=== PATIENT | female | born 1990 | race Caucasian/White ===

== ENCOUNTER → 2017-11-12 14:00 | Outpatient (CLI) | payer OTHER, SELFPAY | PROVIDERS: Family Provider Family Medicine; PCP Family Medicine | DX: Z23 Encounter for immunization (principal) | CPT/HCPCS: 90471; 90686 ==

== ENCOUNTER → 2018-05-29 10:06 | Outpatient (REF) | payer OTHER, SELFPAY | LOC: LAB 10:06 | PROVIDERS: Visit Provider Family Medicine | DX: R50.9 Fever, unspecified (principal) | CPT/HCPCS: 87400 ==

== ENCOUNTER 2018-09-11 09:00 | Outpatient (RCR) | payer OTHER, SELFPAY ==
--- NOTE | 2018-07-03 16:17 | PT.OIE ---
Current Diagnoses Uterovaginal prolapse, unspecified (07/03/18) Past Surgical History (This Medical Record has been edited. Action required.) History of third molar tooth extraction Status post tonsillectomy and adenoidectomy Provider Visit Care Team Role Provider Type Milagros Franklin MD Attending Provider Physician Primary Care Provider Specialty: Family Practice Address: [address] [place] [address], [id number] Email: Physical Therapy Initial Evaluation PT-OP-A Visit Information Start: 07/03/18 11:40 Freq: Status: Active Protocol: Document 07/03/18 09:45 BS (Rec: 07/03/18 13:47 BS [email or web address]) Out-Patient Physical Therapy Visit Information Visit Information Visit Type Initial Evaluation Visit Start Time 09:45 Visit Stop Time 10:30 Total Visit Minutes 45 Visit Number 1 Number of [employer] Visits 0 Evaluation Information Evaluation Date 07/03/18 PT-OP-B Current Condition Start: 07/03/18 11:40 Freq: Status: Active Protocol: Document 07/03/18 09:45 BS (Rec: 07/03/18 13:47 BS [email or web address]) Current Condition History of Current Condition Onset Date 2014 Current Complaints prolapse History of Current Condition Pt complains of constant mild pelvic pressure and heaviness that increases during menstruation and when standing . Pt first noticed symptoms of prolapse following the of her first child in 2014 and notes that it became worse after her second child in 2016. She has not been able to use tampons since her most recent child due to discomfort and it not staying in place. Both of her children were delivered vaginally, small perineal tears with both births. Pt denies birthing complications, use of forceps, urinary incontinence, or pain with intercourse and urination. She denies constipation or chronic cough. Prior Functional Status Baseline Function- ADL's Independent Baseline Function- Gait Independent, no AD Baseline Function- Work/School Independent Baseline Function- Recreation/Hobbies Independent Current Functional Impairments (Reported) Functional Limitations- ADL's Pt reports pelvic discomfort and heaviness with all activities of daily living, especially in standing. Functional Limitations- Mobility/Gait Pelvic heaviness with ambulation and functional mobility. Functional Limitations- Other Pt has had to switch to using pads due to pelvic discomfort with tampons. PT-OP-C Subjective Start: 07/03/18 11:40 Freq: Status: Active Protocol: Document 07/03/18 09:45 BS (Rec: 07/03/18 13:47 BS [email or web address]) Patient Questionnaires Pelvic Pain and Urgency/Frequency Patient Symptom Scale Pelvic Pain Score 16 OP-PT Pain Assessment Pain Assessment Grid Paper Pain Assessment Grid Completed Yes Location Wrist Pain Location Details Bilateral wrists Intensity 9 Perineal Pain Location Details Pelvic heaviness and discomfort Intensity 6 Scale Used Numeric (1 - 10) Pain Aggravating Factors Standing Other Pain Aggravating Factors menstruation PT-OP-I Pelvic Floor Start: 07/03/18 11:40 Freq: Status: Active Protocol: Document 07/03/18 09:45 AMB (Rec: 07/03/18 11:58 AMB [email or web address]) Pelvic Floor Assessment Urine Pelvic Floor Surgery No Urinary Symptoms Falling Out Feeling/Heavy Other Urinary Symptoms denies leaks, but not exercising a lot Voiding Frequency every 2 hours Nocturia 1 Bowel Bowel Surgery No Pelvic Clock Pelvic Clock Other Tenderness bilaterally at obterator, no tenderness at perineum, good healing of scar from tear. Prolapse Uterine Prolapse Grade 2 Perineal Descent Resting Absent Bearing Present SEMG (uV) Baseline 10 Quick Contraction 20 Recruitment Pattern Fair Relaxation Fair Holding Poor/Slow Stability of Hold Fair SEMG Stability of Rest Fair Contraction Ability Voluntary Contraction Weak Voluntary Relaxation Weak Manual Muscle Testing Left 3 Manual Muscle Testing Right 3 Manual Muscle Testing Anterior 3 Manual Muscle Testing Posterior 2 Muscle Endurance (Seconds) 5 Number of Quick Contractions In 10 4 Seconds Comments Pelvic Floor Comments Alexus had a high level of baseline muscular activity on sEMG, but was not especially tight at the introitus, did feel pressure with palpation throughout vaginal canal. PT-OP-Q Treatments Start: 07/03/18 11:40 Freq: Status: Active Protocol: Document 07/03/18 09:45 BS (Rec: 07/03/18 15:57 BS [email or web address]) Neuro Re-Education Treatment Other Activities 1 Details sEMG Comments pelvic floor biofeedback: quick flicks, long holds baseline: 10 max: 20 Self-Care/Home Management Treatment Education Patient Education Home Exercise Program Other Education HEP for pelvic floor strengthening exercises. PT-OP-T Assessment and Plan Start: 07/03/18 11:40 Freq: Status: Active Protocol: Document 07/03/18 09:45 BS (Rec: 07/03/18 15:57 BS [email or web address]) Physical Therapy Assessment Rehab Potential Rehabilitation Potential Good Evaluation Complexity Number of Personal Factors/Comorbidities 0 Number of Body Systems Impaired 1-2 Clinical Presentation at Evaluation Stable Impairments Impairments Activity Tolerance Functional Activities Functional Mobility Pain Soft Tissue Mobility Strength Tone Other Concerns Barriers to Rehabilitation Prolapse symptoms since 2014. Goals Three Impairment muscle endurance Civil Drafter Goal (LTG) Pt will be able to perform a pelvic floor contraction for at least 15 seconds, demonstrating improved endurance of musculature. LTG Duration 10 weeks Two Impairment neuromuscular control Short Term Goal (STG) Pt will be able to contract pelvic floor musculature without over-engaging lower abdominals, demonstrating improved neuromuscular control . STG Duration 4 weeks Civil Drafter Goal (LTG) Pt to report no discomfort or pain with internal palpation of pelvic floor musculature so that she is able to use tampons during menstruation LTG Duration 10 weeks One Impairment weakness Short Term Goal (STG) Pt will be independent with an appriopriate home exercise program for pelvic floor strengthening. STG Duration 4 weeks Senior Care Goal (LTG) Pelvic floor musculature strength to improve to at least 4/5 to increase stability and reduce symptoms of pelvic heaviness. LTG Duration 10 weeks Assessment Summary Assessment Alexus is a 28 year old female who presents with signs and symptoms consistent with uterine prolapse. She first noticed pelvic discomfort and feeling of heaviness following the of her first child in 2014 and notes that it became worse following her second child in 2017. Her symptoms are mildly constant but increase during menstruation impacting her ability to perform daily activities without pelvic discomfort. Pt demo's weakness in the pelvic floor musculature and she benefits from skilled physical therapy intervention to reduce pelvic discomfort and heaviness. Physical Therapy Plan Frequency and Duration Frequency of Treatment 1-2x/week Duration of Treatment 10 weeks Plan of Care Start Date 07/03/18 Plan of Care End Date 09/11/18 Therapeutic Interventions Therapeutic Interventions Home Exercise Program Joint Mobilizations Manual Therapy Neuromuscular Re-education Patient/Caregiver Education Soft Tissue Mobilization Taping Therapeutic Activities Therapeutic Exercises Modalities Biofeedback Cold Pack/Ice Massage Electric Stimulation Hot Packs Next Visit Focus/Plan Next Note Type Treatment Note Next Visit Plan sEMG with quick flicks and long holds.
--- NOTE | 2018-07-03 16:17 | PT.OPPOC ---
Current Diagnoses Uterovaginal prolapse, unspecified (07/03/18) Provider Visit Care Team Role Provider Type Milagros Franklin MD Attending Provider Physician Primary Care Provider Specialty: Family Practice Address: [address] [place] [address], [facility] Email: Plan Of Care PT-OP-T Assessment and Plan Start: 07/03/18 11:40 Freq: Status: Active Protocol: Document 07/03/18 09:45 BS (Rec: 07/03/18 15:57 BS [email or web address]) Physical Therapy Assessment Rehab Potential Rehabilitation Potential Good Evaluation Complexity Number of Personal Factors/Comorbidities 0 Number of Body Systems Impaired 1-2 Clinical Presentation at Evaluation Stable Impairments Impairments Activity Tolerance Functional Activities Functional Mobility Pain Soft Tissue Mobility Strength Tone Other Concerns Barriers to Rehabilitation Prolapse symptoms since 2014. Goals Three Impairment muscle endurance Residential Goal (LTG) Pt will be able to perform a pelvic floor contraction for at least 15 seconds, demonstrating improved endurance of musculature. LTG Duration 10 weeks Two Impairment neuromuscular control Short Term Goal (STG) Pt will be able to contract pelvic floor musculature without over-engaging lower abdominals, demonstrating improved neuromuscular control . STG Duration 4 weeks Residential Goal (LTG) Pt to report no discomfort or pain with internal palpation of pelvic floor musculature so that she is able to use tampons during menstruation LTG Duration 10 weeks One Impairment weakness Short Term Goal (STG) Pt will be independent with an appriopriate home exercise program for pelvic floor strengthening. STG Duration 4 weeks Residential Goal (LTG) Pelvic floor musculature strength to improve to at least 4/5 to increase stability and reduce symptoms of pelvic heaviness. LTG Duration 10 weeks Assessment Summary Assessment Alexus is a 28 year old female who presents with signs and symptoms consistent with uterine prolapse. She first noticed pelvic discomfort and feeling of heaviness following the of her first child in 2014 and notes that it became worse following her second child in 2017. Her symptoms are mildly constant but increase during menstruation impacting her ability to perform daily activities without pelvic discomfort. Pt demo's weakness in the pelvic floor musculature and she benefits from skilled physical therapy intervention to reduce pelvic discomfort and heaviness. Physical Therapy Plan Frequency and Duration Frequency of Treatment 1-2x/week Duration of Treatment 10 weeks Plan of Care Start Date 07/03/18 Plan of Care End Date 09/11/18 Therapeutic Interventions Therapeutic Interventions Home Exercise Program Joint Mobilizations Manual Therapy Neuromuscular Re-education Patient/Caregiver Education Soft Tissue Mobilization Taping Therapeutic Activities Therapeutic Exercises Modalities Biofeedback Cold Pack/Ice Massage Electric Stimulation Hot Packs Next Visit Focus/Plan Next Note Type Treatment Note Next Visit Plan sEMG with quick flicks and long holds. Plan of Care Dates Plan of Care Start Date 07/03/18 Plan of Care End Date 09/11/18 Please Sign and Return: I have reviewed this Plan of Care and certify that the skilled therapy services above are required to meet the patient?s needs. Physician Signature Date Printed Name and Credentials Clinical Instructor Signature Printed Name and Credentials
--- NOTE | 2018-07-10 11:59 | PT.OTN ---
Current Diagnoses Uterovaginal prolapse, unspecified (07/10/18) Physical Therapy Treatment Note PT-OP-A Visit Information Start: 07/03/18 11:40 Freq: Status: Active Protocol: Document 07/10/18 09:45 BS (Rec: 07/10/18 11:56 BS [email or web address]) Out-Patient Physical Therapy Visit Information Visit Information Visit Type Treatment Note Visit Start Time 09:50 Visit Stop Time 10:30 Total Visit Minutes 40 Visit Number 2 Number of SCRAP PREPARATION SUPERVISOR Visits 0 Evaluation Information Evaluation Date 07/03/18 PT-OP-B Current Condition Start: 07/03/18 11:40 Freq: Status: Active Protocol: Document 07/03/18 09:45 BS (Rec: 07/03/18 13:47 BS [email or web address]) Current Condition History of Current Condition Onset Date 2014 Current Complaints prolapse History of Current Condition Pt complains of constant mild pelvic pressure and heaviness that increases during menstruation and when standing . Pt first noticed symptoms of prolapse following the of her first child in 2014 and notes that it became worse after her second child in 2016. She has not been able to use tampons since her most recent child due to discomfort and it not staying in place. Both of her children were delivered vaginally, small perineal tears with both births. Pt denies birthing complications, use of forceps, urinary incontinence, or pain with intercourse and urination. She denies constipation or chronic cough. Prior Functional Status Baseline Function- ADL's Independent Baseline Function- Gait Independent, no AD Baseline Function- Work/School Independent Baseline Function- Recreation/Hobbies Independent Current Functional Impairments (Reported) Functional Limitations- ADL's Pt reports pelvic discomfort and heaviness with all activities of daily living, especially in standing. Functional Limitations- Mobility/Gait Pelvic heaviness with ambulation and functional mobility. Functional Limitations- Other Pt has had to switch to using pads due to pelvic discomfort with tampons. PT-OP-C Subjective Start: 07/03/18 11:40 Freq: Status: Active Protocol: Document 07/10/18 09:45 BS (Rec: 07/10/18 11:56 BS [email or web address]) OP-PT Subjective Patient Comments Patient Comments Pt states that she has been doing pelvic floor strengthening exercises, quick flicks and long holds. She notices that she is quick to fatigue. PT-OP-I Pelvic Floor Start: 07/03/18 11:40 Freq: Status: Active Protocol: Document 07/03/18 09:45 AMB (Rec: 07/03/18 11:58 AMB [email or web address]) Pelvic Floor Assessment Urine Pelvic Floor Surgery No Urinary Symptoms Falling Out Feeling/Heavy Other Urinary Symptoms denies leaks, but not exercising a lot Voiding Frequency every 2 hours Nocturia 1 Bowel Bowel Surgery No Pelvic Clock Pelvic Clock Other Tenderness bilaterally at obterator, no tenderness at perineum, good healing of scar from tear. Prolapse Uterine Prolapse Grade 2 Perineal Descent Resting Absent Bearing Present SEMG (uV) Baseline 10 Quick Contraction 20 Recruitment Pattern Fair Relaxation Fair Holding Poor/Slow Stability of Hold Fair SEMG Stability of Rest Fair Contraction Ability Voluntary Contraction Weak Voluntary Relaxation Weak Manual Muscle Testing Left 3 Manual Muscle Testing Right 3 Manual Muscle Testing Anterior 3 Manual Muscle Testing Posterior 2 Muscle Endurance (Seconds) 5 Number of Quick Contractions In 10 4 Seconds Comments Pelvic Floor Comments Alexus had a high level of baseline muscular activity on sEMG, but was not especially tight at the introitus, did feel pressure with palpation throughout vaginal canal. PT-OP-Q Treatments Start: 07/03/18 11:40 Freq: Status: Active Protocol: Document 07/10/18 09:45 BS (Rec: 07/10/18 11:56 BS [email or web address]) Neuro Re-Education Treatment Other Activities 2 Details Roll in/out Reps/Duration x15 each Comments pelvic floor contraction. small ball and #2band. Added to HEP today. 1 Details sEMG Comments pelvic floor biofeedback: quick flicks, long holds 5W, 10R and 10W, 10R baseline: 5-7 max: 20 PT-OP-T Assessment and Plan Start: 07/03/18 11:40 Freq: Status: Active Protocol: Document 07/10/18 09:45 BS (Rec: 07/10/18 11:56 BS [email or web address]) Physical Therapy Assessment Assessment Summary Assessment During sEMG for pelvic floor strengthening, pt with lower baseline activity today than at IE, max continues to be at 20. Pt was quick to fatigue especially with long holds. She is able to contract for approximately 7 seconds before having to reingage. Added roll outs with #2 band to HEP today. Physical Therapy Plan Next Visit Focus/Plan Next Note Type Treatment Note Next Visit Plan Progress to seated position if able. Continue to work on neuromuscular control and timing with roll in/out. Monitor pelvic pressure during menstruation.
--- NOTE | 2018-07-24 16:06 | PT.OTN ---
Current Diagnoses Uterovaginal prolapse, unspecified (07/24/18) Physical Therapy Treatment Note PT-OP-A Visit Information Start: 07/03/18 11:40 Freq: Status: Active Protocol: Document 07/24/18 10:15 AMB (Rec: 07/24/18 16:06 AMB [email or web address]) Out-Patient Physical Therapy Visit Information Visit Information Visit Type Treatment Note Visit Start Time 10:15 Visit Stop Time 11:00 Total Visit Minutes 45 Visit Number 3 PT-OP-B Current Condition Start: 07/03/18 11:40 Freq: Status: Active Protocol: Document 07/03/18 09:45 BS (Rec: 07/03/18 13:47 BS [email or web address]) Current Condition History of Current Condition Onset Date 2014 Current Complaints prolapse History of Current Condition Pt complains of constant mild pelvic pressure and heaviness that increases during menstruation and when standing . Pt first noticed symptoms of prolapse following the of her first child in 2014 and notes that it became worse after her second child in 2016. She has not been able to use tampons since her most recent child due to discomfort and it not staying in place. Both of her children were delivered vaginally, small perineal tears with both births. Pt denies birthing complications, use of forceps, urinary incontinence, or pain with intercourse and urination. She denies constipation or chronic cough. Prior Functional Status Baseline Function- ADL's Independent Baseline Function- Gait Independent, no AD Baseline Function- Work/School Independent Baseline Function- Recreation/Hobbies Independent Current Functional Impairments (Reported) Functional Limitations- ADL's Pt reports pelvic discomfort and heaviness with all activities of daily living, especially in standing. Functional Limitations- Mobility/Gait Pelvic heaviness with ambulation and functional mobility. Functional Limitations- Other Pt has had to switch to using pads due to pelvic discomfort with tampons. PT-OP-C Subjective Start: 07/03/18 11:40 Freq: Status: Active Protocol: Document 07/24/18 10:15 AMB (Rec: 07/24/18 16:06 AMB [email or web address]) OP-PT Subjective Patient Comments Patient Comments Pt had difficulty with the rolling out exercises, but otherwise is doing well, thinks she will begin menstruating this week, so then that will be a test of how she does. PT-OP-I Pelvic Floor Start: 07/03/18 11:40 Freq: Status: Active Protocol: Document 07/03/18 09:45 AMB (Rec: 07/03/18 11:58 AMB [email or web address]) Pelvic Floor Assessment Urine Pelvic Floor Surgery No Urinary Symptoms Falling Out Feeling/Heavy Other Urinary Symptoms denies leaks, but not exercising a lot Voiding Frequency every 2 hours Nocturia 1 Bowel Bowel Surgery No Pelvic Clock Pelvic Clock Other Tenderness bilaterally at obterator, no tenderness at perineum, good healing of scar from tear. Prolapse Uterine Prolapse Grade 2 Perineal Descent Resting Absent Bearing Present SEMG (uV) Baseline 10 Quick Contraction 20 Recruitment Pattern Fair Relaxation Fair Holding Poor/Slow Stability of Hold Fair SEMG Stability of Rest Fair Contraction Ability Voluntary Contraction Weak Voluntary Relaxation Weak Manual Muscle Testing Left 3 Manual Muscle Testing Right 3 Manual Muscle Testing Anterior 3 Manual Muscle Testing Posterior 2 Muscle Endurance (Seconds) 5 Number of Quick Contractions In 10 4 Seconds Comments Pelvic Floor Comments Alexus had a high level of baseline muscular activity on sEMG, but was not especially tight at the introitus, did feel pressure with palpation throughout vaginal canal. PT-OP-Q Treatments Start: 07/03/18 11:40 Freq: Status: Active Protocol: Document 07/24/18 10:15 AMB (Rec: 07/24/18 16:06 AMB [email or web address]) Therapeutic Exercises Sitting Exercises 1 Sitting Exercise Name hip adduction with PF contraction Reps/Minutes 10 Standing Exercises 3 Standing Exercise Name quick flicks/ long holds in standing Reps/Minutes 2x10 2 Standing Exercise Name mini lunge with PF contract Reps/Minutes 2x10 1 Standing Exercise Name mini squat with PF contract Reps/Minutes 2x10 PT-OP-T Assessment and Plan Start: 07/03/18 11:40 Freq: Status: Active Protocol: Document 07/24/18 10:15 AMB (Rec: 07/24/18 16:06 AMB [email or web address]) Physical Therapy Assessment Assessment Summary Assessment Pt is getting a bit more concerned about her copay, so we progressed her quickly. Reassess with menstruation, as that and inserting a tampon continue to be the most painful. Physical Therapy Plan Next Visit Focus/Plan Next Note Type Treatment Note Next Visit Plan Progress into standing/ standing with movement
--- NOTE | 2018-07-31 12:00 | PT.OPPOC ---
Current Diagnoses Other synovitis and tenosynovitis, right hand (07/31/18) Uterovaginal prolapse, unspecified (07/31/18) Provider Visit Care Team Role Provider Type Milagros Franklin MD Attending Provider Physician Primary Care Provider Specialty: Family Practice Address: [address] [place] [address], [id number] Email: Plan Of Care PT-OP-T Assessment and Plan Start: 07/03/18 11:40 Freq: Status: Active Protocol: Document 07/31/18 10:15 AMB (Rec: 08/04/18 08:34 AMB [email or web address]) Physical Therapy Assessment Goals Five Impairment wrist AROM Short Term Goal (STG) Pt will perform all wrist mobility without an increase in pain. STG Duration 5 weeks Four Impairment wrist pain Short Term Goal (STG) Pt will tolerate a quadruped position for 3 minutes with 3/ 10 pain or less to show improved wrist stability. STG Duration 5 weeks Brass Cleaner Goal (LTG) Pt will push up from a chair with her arms without an increase in pain. LTG Duration 10 weeks Three Impairment muscle endurance Shelter Goal (LTG) Pt will be able to perform a pelvic floor contraction for at least 15 seconds, demonstrating improved endurance of musculature. LTG Duration 10 weeks Two Impairment neuromuscular control Short Term Goal (STG) Pt will be able to contract pelvic floor musculature without over-engaging lower abdominals, demonstrating improved neuromuscular control . STG Duration MET Brass Cleaner Goal (LTG) Pt to report no discomfort or pain with internal palpation of pelvic floor musculature so that she is able to use tampons during menstruation LTG Duration MET One Impairment weakness Short Term Goal (STG) Pt will be independent with an appriopriate home exercise program for pelvic floor strengthening. STG Duration MET Shelter Goal (LTG) Pelvic floor musculature strength to improve to at least 4/5 to increase stability and reduce symptoms of pelvic heaviness. LTG Duration 10 weeks Assessment Summary Assessment Pt with likely wrist tendonitis, exacerbated by child and adolescent psychiatrist. Interestingly she states that her mother was diagnosed with a connective tissue disorder, and she does display a high level of hypermobility with hyperextension at the fingers, elbows,and knees. This will make the stabilization at the wrist that is necessary for pain relief more challenging. Physical Therapy Plan Frequency and Duration Frequency of Treatment 1x/Week Duration of Treatment 10 weeks Plan of Care Start Date 07/31/18 Plan of Care End Date 10/09/18 Therapeutic Interventions Therapeutic Interventions Home Exercise Program Joint Mobilizations Manual Therapy Neuromuscular Re-education Patient/Caregiver Education Soft Tissue Mobilization Taping Therapeutic Activities Therapeutic Exercises Modalities Biofeedback Cold Pack/Ice Massage Electric Stimulation Hot Packs Next Visit Focus/Plan Next Note Type Treatment Note Next Visit Plan Begin wrist treatment, follow up with pelvic floor as necessary Plan of Care Dates Plan of Care Start Date 07/31/18 Plan of Care End Date 10/09/18 Please Sign and Return: I have reviewed this Plan of Care and certify that the skilled therapy services above are required to meet the patient?s needs. Physician Signature Date Printed Name and Credentials Clinical Instructor Signature Printed Name and Credentials
--- NOTE | 2018-07-31 12:00 | PT.OTRE ---
Current Diagnoses Other synovitis and tenosynovitis, right hand (07/31/18) Uterovaginal prolapse, unspecified (07/31/18) Surgical History (This Medical Record has been edited. Action required.) History of third molar tooth extraction Status post tonsillectomy and adenoidectomy Provider Visit Care Team Role Provider Type Milagros Franklin MD Attending Provider Physician Primary Care Provider Specialty: [facility] Practice Address: [address] [place] [address], [facility] Email: Physical Therapy Re-Evaluation PT-OP-A Visit Information Start: 07/03/18 11:40 Freq: Status: Active Protocol: Document 07/31/18 10:15 AMB (Rec: 08/04/18 07:27 AMB [email or web address]) Out-Patient Physical Therapy Visit Information Visit Information Visit Type Re-Evaluation Visit Start Time 10:15 Visit Stop Time 11:00 Total Visit Minutes 45 Visit Number 4 PT-OP-B Current Condition Start: 07/03/18 11:40 Freq: Status: Active Protocol: Document 07/31/18 10:15 AMB (Rec: 08/04/18 07:27 AMB [email or web address]) Current Condition History of Current Condition Onset Date 2014 Current Complaints wrist pain History of Current Condition R>L medial and lateral wrist pain. Started after her first child was born, worst after the second. Blames it on over use/ posture. Just stopped , so hoping that will help. Treatment Goals Patient/Caregiver Goals Push up her body with her wrist in extension without pain. Be able to get her daughter in her carseat without wrist pain. Prior Functional Status Baseline Function- ADL's Independent Current Functional Impairments (Reported) Functional Limitations- ADL's Pain with putting pressure through wrist to perform childcare. PT-OP-C Subjective Start: 07/03/18 11:40 Freq: Status: Active Protocol: Document 07/31/18 10:15 AMB (Rec: 08/04/18 07:27 AMB [email or web address]) OP-PT Subjective Patient Comments Patient Comments Alexus reports she was able to insert a tampon during her last menstruation without pain , and that it stayed in. So she is hoping to work on her wrist today, as her doctor wrote her a prescription for both. OP-PT Pain Assessment Comments Pain Comments Pain at rest 1/10, most of the day 3/10, can get up to 10/10 with forcing carseat clip in or pushing up from seated with wrists extended. PT-OP-I Pelvic Floor Start: 07/03/18 11:40 Freq: Status: Active Protocol: Document 07/03/18 09:45 AMB (Rec: 07/03/18 11:58 AMB [email or web address]) Pelvic Floor Assessment Urine Pelvic Floor Surgery No Urinary Symptoms Falling Out Feeling/Heavy Other Urinary Symptoms denies leaks, but not exercising a lot Voiding Frequency every 2 hours Nocturia 1 Bowel Bowel Surgery No Pelvic Clock Pelvic Clock Other Tenderness bilaterally at obterator, no tenderness at perineum, good healing of scar from tear. Prolapse Uterine Prolapse Grade 2 Perineal Descent Resting Absent Bearing Present SEMG (uV) Baseline 10 Quick Contraction 20 Recruitment Pattern Fair Relaxation Fair Holding Poor/Slow Stability of Hold Fair SEMG Stability of Rest Fair Contraction Ability Voluntary Contraction Weak Voluntary Relaxation Weak Manual Muscle Testing Left 3 Manual Muscle Testing Right 3 Manual Muscle Testing Anterior 3 Manual Muscle Testing Posterior 2 Muscle Endurance (Seconds) 5 Number of Quick Contractions In 10 4 Seconds Comments Pelvic Floor Comments Alexus had a high level of baseline muscular activity on sEMG, but was not especially tight at the introitus, did feel pressure with palpation throughout vaginal canal. PT-OP-K Range of Motion Start: 08/04/18 07:15 Freq: Status: Active Protocol: Document 07/31/18 10:15 AMB (Rec: 08/04/18 07:30 AMB [email or web address]) Wrist Goniometric Range of Motion Wrist Measured in Degrees Right Flexion Active (degrees) 80 Extension Active (degrees) 65 Ulnar Deviation Active (degrees) 30 Radial Deviation Active (degrees) 15 Left Flexion Active (degrees) 80 Extension Active (degrees) 65 Ulnar Deviation Active (degrees) 30 Radial Deviation Active (degrees) 10 ROM Limitations Comments pain with ulnar deviation on the right PT-OP-M Strength Start: 08/04/18 07:15 Freq: Status: Active Protocol: Document 07/31/18 10:15 AMB (Rec: 08/04/18 07:30 AMB [email or web address]) Wrist Strength Wrist Manual Muscle Testing Right Flexion (C7) 5 Normal Extension (C6) 5 Normal Ulnar Deviation 5 Normal Radial Deviation 5 Normal Hand Dry Cell Sealer/Pinch Strength Hand Dominance Hand Dominance Right Hand Strength Right Dry Cell Sealer (lbs) 45 Left Dry Cell Sealer (lbs) 48 PT-OP-Q Treatments Start: 07/03/18 11:40 Freq: Status: Active Protocol: Document 07/31/18 10:15 AMB (Rec: 08/04/18 08:37 AMB [email or web address]) Therapeutic Exercises Sitting Exercises 3 Sitting Exercise Name supination/ pronation Reps/Minutes 1# Comments 1x10 2 Sitting Exercise Name wrist extension Equipment Used 1# Comments 1x10 PT-OP-T Assessment and Plan Start: 07/03/18 11:40 Freq: Status: Active Protocol: Document 07/31/18 10:15 AMB (Rec: 08/04/18 08:34 AMB [email or web address]) Physical Therapy Assessment Goals Five Impairment wrist AROM Short Term Goal (STG) Pt will perform all wrist mobility without an increase in pain. STG Duration 5 weeks Four Impairment wrist pain Short Term Goal (STG) Pt will tolerate a quadruped position for 3 minutes with 3/ 10 pain or less to show improved wrist stability. STG Duration 5 weeks Care Home Goal (LTG) Pt will push up from a chair with her arms without an increase in pain. LTG Duration 10 weeks Three Impairment muscle endurance Care Home Goal (LTG) Pt will be able to perform a pelvic floor contraction for at least 15 seconds, demonstrating improved endurance of musculature. LTG Duration 10 weeks Two Impairment neuromuscular control Short Term Goal (STG) Pt will be able to contract pelvic floor musculature without over-engaging lower abdominals, demonstrating improved neuromuscular control . STG Duration MET Care Home Goal (LTG) Pt to report no discomfort or pain with internal palpation of pelvic floor musculature so that she is able to use tampons during menstruation LTG Duration MET One Impairment weakness Short Term Goal (STG) Pt will be independent with an appriopriate home exercise program for pelvic floor strengthening. STG Duration MET Care Home Goal (LTG) Pelvic floor musculature strength to improve to at least 4/5 to increase stability and reduce symptoms of pelvic heaviness. LTG Duration 10 weeks Assessment Summary Assessment Pt with likely wrist tendonitis, exacerbated by child custody evaluator. Interestingly she states that her mother was diagnosed with a connective tissue disorder, and she does display a high level of hypermobility with hyperextension at the fingers, elbows,and knees. This will make the stabilization at the wrist that is necessary for pain relief more challenging. Physical Therapy Plan Frequency and Duration Frequency of Treatment 1x/Week Duration of Treatment 10 weeks Plan of Care Start Date 07/31/18 Plan of Care End Date 10/09/18 Therapeutic Interventions Therapeutic Interventions Home Exercise Program Joint Mobilizations Manual Therapy Neuromuscular Re-education Patient/Caregiver Education Soft Tissue Mobilization Taping Therapeutic Activities Therapeutic Exercises Modalities Biofeedback Cold Pack/Ice Massage Electric Stimulation Hot Packs Next Visit Focus/Plan Next Note Type Treatment Note Next Visit Plan Begin wrist treatment, follow up with pelvic floor as necessary
--- NOTE | 2018-08-07 10:22 | PT.OTN ---
Current Diagnoses Other synovitis and tenosynovitis, right hand (08/07/18) Uterovaginal prolapse, unspecified (08/07/18) Physical Therapy Treatment Note PT-OP-A Visit Information Start: 07/03/18 11:40 Freq: Status: Active Protocol: Document 08/07/18 09:00 AMB (Rec: 08/07/18 10:18 AMB [email or web address]) Out-Patient Physical Therapy Visit Information Visit Information Visit Type Treatment Note Visit Start Time 09:00 Visit Stop Time 09:45 Total Visit Minutes 45 Visit Number 5 PT-OP-B Current Condition Start: 07/03/18 11:40 Freq: Status: Active Protocol: Document 07/31/18 10:15 AMB (Rec: 08/04/18 07:27 AMB [email or web address]) Current Condition History of Current Condition Onset Date 2014 Current Complaints wrist pain History of Current Condition R>L medial and lateral wrist pain. Started after her first child was born, worst after the second. Blames it on over use/ posture. Just stopped , so hoping that will help. Treatment Goals Patient/Caregiver Goals Push up her body with her wrist in extension without pain. Be able to get her daughter in her carseat without wrist pain. Prior Functional Status Baseline Function- ADL's Independent Current Functional Impairments (Reported) Functional Limitations- ADL's Pain with putting pressure through wrist to perform childcare. PT-OP-C Subjective Start: 07/03/18 11:40 Freq: Status: Active Protocol: Document 08/07/18 09:00 AMB (Rec: 08/07/18 10:18 AMB [email or web address]) OP-PT Subjective Patient Comments Patient Comments Pt reports she was definitely sore after last visit for a few days, and noted more numbness in her hand at night during that time frame. 03/13 pain right now. PT-OP-I Pelvic Floor Start: 07/03/18 11:40 Freq: Status: Active Protocol: Document 07/03/18 09:45 AMB (Rec: 07/03/18 11:58 AMB [email or web address]) Pelvic Floor Assessment Urine Pelvic Floor Surgery No Urinary Symptoms Falling Out Feeling/Heavy Other Urinary Symptoms denies leaks, but not exercising a lot Voiding Frequency every 2 hours Nocturia 1 Bowel Bowel Surgery No Pelvic Clock Pelvic Clock Other Tenderness bilaterally at obterator, no tenderness at perineum, good healing of scar from tear. Prolapse Uterine Prolapse Grade 2 Perineal Descent Resting Absent Bearing Present SEMG (uV) Baseline 10 Quick Contraction 20 Recruitment Pattern Fair Relaxation Fair Holding Poor/Slow Stability of Hold Fair SEMG Stability of Rest Fair Contraction Ability Voluntary Contraction Weak Voluntary Relaxation Weak Manual Muscle Testing Left 3 Manual Muscle Testing Right 3 Manual Muscle Testing Anterior 3 Manual Muscle Testing Posterior 2 Muscle Endurance (Seconds) 5 Number of Quick Contractions In 10 4 Seconds Comments Pelvic Floor Comments Alexus had a high level of baseline muscular activity on sEMG, but was not especially tight at the introitus, did feel pressure with palpation throughout vaginal canal. PT-OP-K Range of Motion Start: 08/04/18 07:15 Freq: Status: Active Protocol: Document 07/31/18 10:15 AMB (Rec: 08/04/18 07:30 AMB [email or web address]) Wrist Goniometric Range of Motion Wrist Measured in Degrees Right Flexion Active (degrees) 80 Extension Active (degrees) 65 Ulnar Deviation Active (degrees) 30 Radial Deviation Active (degrees) 15 Left Flexion Active (degrees) 80 Extension Active (degrees) 65 Ulnar Deviation Active (degrees) 30 Radial Deviation Active (degrees) 10 ROM Limitations Comments pain with ulnar deviation on the right PT-OP-M Strength Start: 08/04/18 07:15 Freq: Status: Active Protocol: Document 07/31/18 10:15 AMB (Rec: 08/04/18 07:30 AMB [email or web address]) Wrist Strength Wrist Manual Muscle Testing Right Flexion (C7) 5 Normal Extension (C6) 5 Normal Ulnar Deviation 5 Normal Radial Deviation 5 Normal Hand Silk Spooler/Pinch Strength Hand Dominance Hand Dominance Right Hand Strength Right Silk Spooler (lbs) 45 Left Silk Spooler (lbs) 48 PT-OP-Q Treatments Start: 07/03/18 11:40 Freq: Status: Active Protocol: Document 08/07/18 09:00 AMB (Rec: 08/07/18 10:18 AMB [email or web address]) Therapeutic Exercises Sitting Exercises 4 Sitting Exercise Name radial deviation Resistance AROM Comments 1x10 2 Sitting Exercise Name wrist extension Equipment Used AROM Comments 1x10 1 Sitting Exercise Name wrist flexion Resistance AROM Reps/Minutes 1x10 Manual Therapy Treatment Joint Mobilizations 1 Joint carpals Comments distraction with PA Taping 1 Body Location wrist Comments I around wrist circumfrence, I over wrist flexor musculature PT-OP-R Modalities Start: 08/07/18 10:19 Freq: Status: Active Protocol: Document 08/07/18 09:00 AMB (Rec: 08/07/18 10:20 AMB [email or web address]) Ultrasound Therapy Treatment Right Wrist Treatment Duration (minutes) 10 Patient Position Sitting Coupling Medium Ultrasound Gel Frequency Setting (mHz) 1 Intensity Setting (w/cm2) 1.5 Comments medial and lateral wrist PT-OP-T Assessment and Plan Start: 07/03/18 11:40 Freq: Status: Active Protocol: Document 08/07/18 09:00 AMB (Rec: 08/07/18 10:18 AMB [email or web address]) Physical Therapy Assessment Goals Five Impairment wrist AROM Short Term Goal (STG) Pt will perform all wrist mobility without an increase in pain. STG Duration 5 weeks Four Impairment wrist pain Short Term Goal (STG) Pt will tolerate a quadruped position for 3 minutes with 3/ 10 pain or less to show improved wrist stability. STG Duration 5 weeks Recreational Vehicle Resort Manager Goal (LTG) Pt will push up from a chair with her arms without an increase in pain. LTG Duration 10 weeks Assessment Summary Assessment Pt tolerated exercises through a modified pain free range of motion only. Told pt that occasional popping is ok wiht exercises but to try to avoid repetetive popping with every rep of a movement. Physical Therapy Plan Frequency and Duration Frequency of Treatment 1x/Week Duration of Treatment 10 weeks Plan of Care Start Date 07/31/18 Plan of Care End Date 10/09/18 Next Visit Focus/Plan Next Note Type Treatment Note Next Visit Plan Follow up on brace, progress stabilization as tolerated
--- NOTE | 2018-08-14 15:01 | PT.OTN ---
Current Diagnoses Other synovitis and tenosynovitis, right hand (08/14/18) Uterovaginal prolapse, unspecified (08/14/18) Physical Therapy Treatment Note PT-OP-A Visit Information Start: 07/03/18 11:40 Freq: Status: Active Protocol: Document 08/14/18 09:45 AMB (Rec: 08/14/18 13:46 AMB [email or web address]) Out-Patient Physical Therapy Visit Information Visit Information Visit Type Treatment Note Visit Start Time 09:45 Visit Stop Time 10:30 Total Visit Minutes 45 Visit Number 6 PT-OP-B Current Condition Start: 07/03/18 11:40 Freq: Status: Active Protocol: Document 07/31/18 10:15 AMB (Rec: 08/04/18 07:27 AMB [email or web address]) Current Condition History of Current Condition Onset Date 2014 Current Complaints wrist pain History of Current Condition R>L medial and lateral wrist pain. Started after her first child was born, worst after the second. Blames it on over use/ posture. Just stopped , so hoping that will help. Treatment Goals Patient/Caregiver Goals Push up her body with her wrist in extension without pain. Be able to get her daughter in her carseat without wrist pain. Prior Functional Status Baseline Function- ADL's Independent Current Functional Impairments (Reported) Functional Limitations- ADL's Pain with putting pressure through wrist to perform childcare. PT-OP-C Subjective Start: 07/03/18 11:40 Freq: Status: Active Protocol: Document 08/14/18 09:45 AMB (Rec: 08/14/18 13:46 AMB [email or web address]) OP-PT Subjective Patient Comments Patient Comments Pt reports she was again sore after last visit and that it lasted multiple days. She did purchas wrist braces off [employer]. PT-OP-I Pelvic Floor Start: 07/03/18 11:40 Freq: Status: Active Protocol: Document 07/03/18 09:45 AMB (Rec: 07/03/18 11:58 AMB [email or web address]) Pelvic Floor Assessment Urine Pelvic Floor Surgery No Urinary Symptoms Falling Out Feeling/Heavy Other Urinary Symptoms denies leaks, but not exercising a lot Voiding Frequency every 2 hours Nocturia 1 Bowel Bowel Surgery No Pelvic Clock Pelvic Clock Other Tenderness bilaterally at obterator, no tenderness at perineum, good healing of scar from tear. Prolapse Uterine Prolapse Grade 2 Perineal Descent Resting Absent Bearing Present SEMG (uV) Baseline 10 Quick Contraction 20 Recruitment Pattern Fair Relaxation Fair Holding Poor/Slow Stability of Hold Fair SEMG Stability of Rest Fair Contraction Ability Voluntary Contraction Weak Voluntary Relaxation Weak Manual Muscle Testing Left 3 Manual Muscle Testing Right 3 Manual Muscle Testing Anterior 3 Manual Muscle Testing Posterior 2 Muscle Endurance (Seconds) 5 Number of Quick Contractions In 10 4 Seconds Comments Pelvic Floor Comments Alexus had a high level of baseline muscular activity on sEMG, but was not especially tight at the introitus, did feel pressure with palpation throughout vaginal canal. PT-OP-K Range of Motion Start: 08/04/18 07:15 Freq: Status: Active Protocol: Document 07/31/18 10:15 AMB (Rec: 08/04/18 07:30 AMB [email or web address]) Wrist Goniometric Range of Motion Wrist Measured in Degrees Right Flexion Active (degrees) 80 Extension Active (degrees) 65 Ulnar Deviation Active (degrees) 30 Radial Deviation Active (degrees) 15 Left Flexion Active (degrees) 80 Extension Active (degrees) 65 Ulnar Deviation Active (degrees) 30 Radial Deviation Active (degrees) 10 ROM Limitations Comments pain with ulnar deviation on the right PT-OP-M Strength Start: 08/04/18 07:15 Freq: Status: Active Protocol: Document 07/31/18 10:15 AMB (Rec: 08/04/18 07:30 AMB [email or web address]) Wrist Strength Wrist Manual Muscle Testing Right Flexion (C7) 5 Normal Extension (C6) 5 Normal Ulnar Deviation 5 Normal Radial Deviation 5 Normal Hand Accounts Payable Bookkeeper/Pinch Strength Hand Dominance Hand Dominance Right Hand Strength Right Accounts Payable Bookkeeper (lbs) 45 Left Accounts Payable Bookkeeper (lbs) 48 PT-OP-Q Treatments Start: 07/03/18 11:40 Freq: Status: Active Protocol: Document 08/14/18 09:45 AMB (Rec: 08/14/18 15:00 AMB [email or web address]) Therapeutic Exercises Sitting Exercises 4 Sitting Exercise Name radial deviation Resistance isometric Reps/Minutes 5 sec hold x5 3 Sitting Exercise Name ulnar deviation Resistance isometric Reps/Minutes 5x5 2 Sitting Exercise Name wrist extension Comments 5 sec hold x5 1 Sitting Exercise Name wrist flexion Reps/Minutes 5 sec hold x 5 Manual Therapy Treatment Soft Tissue Mobilization 1 Body Location ulnar/radial collateral ligaments Mobilization Type Strumming Intensity/Depth Superficial Joint Mobilizations 1 Joint carpals Comments distraction with PA PT-OP-R Modalities Start: 08/07/18 10:19 Freq: Status: Active Protocol: Document 08/14/18 09:45 AMB (Rec: 08/14/18 13:46 AMB [email or web address]) Ultrasound Therapy Treatment Right Wrist Treatment Duration (minutes) 8 Patient Position Sitting Coupling Medium Ultrasound Gel Frequency Setting (mHz) 1 Intensity Setting (w/cm2) 1.5 Comments medial and lateral wrist PT-OP-T Assessment and Plan Start: 07/03/18 11:40 Freq: Status: Active Protocol: Document 08/14/18 09:45 AMB (Rec: 08/14/18 13:46 AMB [email or web address]) Physical Therapy Assessment Assessment Summary Assessment Decreased intensity of HEP by issuing isometric exercises and instructing pt to stop with AROM exercises for now due to increased soreness last two visits. Physical Therapy Plan Next Visit Focus/Plan Next Note Type Treatment Note Next Visit Plan Progress stabilization as tolerated, follow up on tolerance to isometric exercises, continue education in body mechanics with child development assistant.
--- NOTE | 2018-08-28 12:57 | PT.OTN ---
Current Diagnoses Other synovitis and tenosynovitis, right hand (08/28/18) Uterovaginal prolapse, unspecified (08/28/18) Physical Therapy Treatment Note PT-OP-A Visit Information Start: 07/03/18 11:40 Freq: Status: Active Protocol: Document 08/28/18 11:12 EA (Rec: 08/28/18 11:17 EA [id number]) Out-Patient Physical Therapy Visit Information Visit Information Visit Type Treatment Note Visit Start Time 10:30 Visit Stop Time 11:10 Total Visit Minutes 45 Visit Number 7 PT-OP-B Current Condition Start: 07/03/18 11:40 Freq: Status: Active Protocol: Document 07/31/18 10:15 AMB (Rec: 08/04/18 07:27 AMB [email or web address]) Current Condition History of Current Condition Onset Date 2014 Current Complaints wrist pain History of Current Condition R>L medial and lateral wrist pain. Started after her first child was born, worst after the second. Blames it on over use/ posture. Just stopped , so hoping that will help. Treatment Goals Patient/Caregiver Goals Push up her body with her wrist in extension without pain. Be able to get her daughter in her carseat without wrist pain. Prior Functional Status Baseline Function- ADL's Independent Current Functional Impairments (Reported) Functional Limitations- ADL's Pain with putting pressure through wrist to perform childcare. PT-OP-C Subjective Start: 07/03/18 11:40 Freq: Status: Active Protocol: Document 08/28/18 11:12 EA (Rec: 08/28/18 11:17 EA [id number]) OP-PT Subjective Patient Comments Patient Comments Pt reports symptoms of right FRA numbness and tingling happens at night while sleeping to right side or her son slept on her forearm; states localized pain to wrist mostly happens when fixing the car seat of her child. PT-OP-I Pelvic Floor Start: 07/03/18 11:40 Freq: Status: Active Protocol: Document 07/03/18 09:45 AMB (Rec: 07/03/18 11:58 AMB [email or web address]) Pelvic Floor Assessment Urine Pelvic Floor Surgery No Urinary Symptoms Falling Out Feeling/Heavy Other Urinary Symptoms denies leaks, but not exercising a lot Voiding Frequency every 2 hours Nocturia 1 Bowel Bowel Surgery No Pelvic Clock Pelvic Clock Other Tenderness bilaterally at obterator, no tenderness at perineum, good healing of scar from tear. Prolapse Uterine Prolapse Grade 2 Perineal Descent Resting Absent Bearing Present SEMG (uV) Baseline 10 Quick Contraction 20 Recruitment Pattern Fair Relaxation Fair Holding Poor/Slow Stability of Hold Fair SEMG Stability of Rest Fair Contraction Ability Voluntary Contraction Weak Voluntary Relaxation Weak Manual Muscle Testing Left 3 Manual Muscle Testing Right 3 Manual Muscle Testing Anterior 3 Manual Muscle Testing Posterior 2 Muscle Endurance (Seconds) 5 Number of Quick Contractions In 10 4 Seconds Comments Pelvic Floor Comments Alexus had a high level of baseline muscular activity on sEMG, but was not especially tight at the introitus, did feel pressure with palpation throughout vaginal canal. PT-OP-K Range of Motion Start: 08/04/18 07:15 Freq: Status: Active Protocol: Document 07/31/18 10:15 AMB (Rec: 08/04/18 07:30 AMB [email or web address]) Wrist Goniometric Range of Motion Wrist Right Flexion Active (degrees) 80 Extension Active (degrees) 65 Ulnar Deviation Active (degrees) 30 Radial Deviation Active (degrees) 15 Left Flexion Active (degrees) 80 Extension Active (degrees) 65 Ulnar Deviation Active (degrees) 30 Radial Deviation Active (degrees) 10 ROM Limitations Comments pain with ulnar deviation on the right PT-OP-M Strength Start: 08/04/18 07:15 Freq: Status: Active Protocol: Document 07/31/18 10:15 AMB (Rec: 08/04/18 07:30 AMB [email or web address]) Wrist Strength Wrist Manual Muscle Testing Right Flexion (C7) 5 Normal Extension (C6) 5 Normal Ulnar Deviation 5 Normal Radial Deviation 5 Normal Hand Skin Toggler/Pinch Strength Hand Dominance Hand Dominance Right Hand Strength Right Skin Toggler (lbs) 45 Left Skin Toggler (lbs) 48 PT-OP-Q Treatments Start: 07/03/18 11:40 Freq: Status: Active Protocol: Document 08/28/18 11:12 EA (Rec: 08/28/18 11:17 EA [id number]) Therapeutic Exercises Sitting Exercises 4 Sitting Exercise Name radial deviation Resistance isometric Reps/Minutes 5 sec hold x5 3 Sitting Exercise Name ulnar deviation Resistance isometric Reps/Minutes 5x5 2 Sitting Exercise Name wrist extension Comments 5 sec hold x5 1 Sitting Exercise Name wrist flexion Reps/Minutes 5 sec hold x 5 Manual Therapy Treatment Soft Tissue Mobilization 1 Body Location ulnar/radial collateral ligaments/ FRA musculature Mobilization Type Myofascial Release Rolling Other Intensity/Depth Moderate Body Position Sitting Joint Mobilizations 1 Joint Radioulnar Comments distraction with PA Nerve Glides 1 Nerve Radial and ulnar Reps/Duration x 15 reps x2 PT-OP-R Modalities Start: 08/07/18 10:19 Freq: Status: Active Protocol: Document 08/28/18 11:12 EA (Rec: 08/28/18 11:17 EA [id number]) Paraffin Bath Treatment Right Hand Treatment Technique Immersion Bath Duration (minutes) 10 Patient Tolerance Good PT-OP-T Assessment and Plan Start: 07/03/18 11:40 Freq: Status: Active Protocol: Document 08/28/18 11:12 EA (Rec: 08/28/18 11:17 EA [id number]) Physical Therapy Assessment Assessment Summary Assessment Tolerated treatment well. Physical Therapy Plan Next Visit Focus/Plan Next Note Type Treatment Note Next Visit Plan Progress stabilization as tolerated, follow up on tolerance to isometric exercises, continue education in body mechanics with early childhood education coordinator.
--- NOTE | 2018-09-05 14:44 | PT.OTN ---
Current Diagnoses Other synovitis and tenosynovitis, right hand (09/05/18) Uterovaginal prolapse, unspecified (09/05/18) Physical Therapy Treatment Note PT-OP-A Visit Information Start: 07/03/18 11:40 Freq: Status: Active Protocol: Document 09/05/18 13:38 LRN (Rec: 09/05/18 14:17 LRN [id number]) Out-Patient Physical Therapy Visit Information Visit Information Visit Type Treatment Note Visit Start Time 13:38 Visit Stop Time 14:16 Total Visit Minutes 38 Visit Number 8 Evaluation Information Evaluation Date 07/03/18 PT-OP-B Current Condition Start: 07/03/18 11:40 Freq: Status: Active Protocol: Document 07/31/18 10:15 AMB (Rec: 08/04/18 07:27 AMB [email or web address]) Current Condition History of Current Condition Onset Date 2014 Current Complaints wrist pain History of Current Condition R>L medial and lateral wrist pain. Started after her first child was born, worst after the second. Blames it on over use/ posture. Just stopped , so hoping that will help. Treatment Goals Patient/Caregiver Goals Push up her body with her wrist in extension without pain. Be able to get her daughter in her carseat without wrist pain. Prior Functional Status Baseline Function- ADL's Independent Current Functional Impairments (Reported) Functional Limitations- ADL's Pain with putting pressure through wrist to perform childcare. PT-OP-C Subjective Start: 07/03/18 11:40 Freq: Status: Active Protocol: Document 09/05/18 13:38 LRN (Rec: 09/05/18 14:17 LRN [id number]) OP-PT Subjective Patient Comments Patient Comments Hasn't had the R wrist pain since last session because she hasn't been using the car seat in her spouses car. Not been weightbearing on R arm. PT-OP-I Pelvic Floor Start: 07/03/18 11:40 Freq: Status: Active Protocol: Document 07/03/18 09:45 AMB (Rec: 07/03/18 11:58 AMB [email or web address]) Pelvic Floor Assessment Urine Pelvic Floor Surgery No Urinary Symptoms Falling Out Feeling/Heavy Other Urinary Symptoms denies leaks, but not exercising a lot Voiding Frequency every 2 hours Nocturia 1 Bowel Bowel Surgery No Pelvic Clock Pelvic Clock Other Tenderness bilaterally at obterator, no tenderness at perineum, good healing of scar from tear. Prolapse Uterine Prolapse Grade 2 Perineal Descent Resting Absent Bearing Present SEMG (uV) Baseline 10 Quick Contraction 20 Recruitment Pattern Fair Relaxation Fair Holding Poor/Slow Stability of Hold Fair SEMG Stability of Rest Fair Contraction Ability Voluntary Contraction Weak Voluntary Relaxation Weak Manual Muscle Testing Left 3 Manual Muscle Testing Right 3 Manual Muscle Testing Anterior 3 Manual Muscle Testing Posterior 2 Muscle Endurance (Seconds) 5 Number of Quick Contractions In 10 4 Seconds Comments Pelvic Floor Comments Alexus had a high level of baseline muscular activity on sEMG, but was not especially tight at the introitus, did feel pressure with palpation throughout vaginal canal. PT-OP-K Range of Motion Start: 08/04/18 07:15 Freq: Status: Active Protocol: Document 07/31/18 10:15 AMB (Rec: 08/04/18 07:30 AMB [email or web address]) Wrist Goniometric Range of Motion Wrist Right Flexion Active (degrees) 80 Extension Active (degrees) 65 Ulnar Deviation Active (degrees) 30 Radial Deviation Active (degrees) 15 Left Flexion Active (degrees) 80 Extension Active (degrees) 65 Ulnar Deviation Active (degrees) 30 Radial Deviation Active (degrees) 10 ROM Limitations Comments pain with ulnar deviation on the right PT-OP-M Strength Start: 08/04/18 07:15 Freq: Status: Active Protocol: Document 07/31/18 10:15 AMB (Rec: 08/04/18 07:30 AMB [email or web address]) Wrist Strength Wrist Manual Muscle Testing Right Flexion (C7) 5 Normal Extension (C6) 5 Normal Ulnar Deviation 5 Normal Radial Deviation 5 Normal Hand Director Personal/Pinch Strength Hand Dominance Hand Dominance Right Hand Strength Right Director Personal (lbs) 45 Left Director Personal (lbs) 48 PT-OP-Q Treatments Start: 07/03/18 11:40 Freq: Status: Active Protocol: Document 09/05/18 13:38 LRN (Rec: 09/05/18 14:17 LRN [id number]) Therapeutic Exercises Supine Exercises Ulnar n glide Supine Exercise Name Ulnar n. glide Side right Reps/Minutes 5x Comments Elbow straight w/wrist flex Median nerve glide Supine Exercise Name Median n. glide Side right Reps/Minutes 5x Comments Elbow straight w/wrist ext Sitting Exercises Head/neck posture training Sitting Exercise Name Isometric Deep C. neck flexor training Reps/Minutes 2' Comments Pushing head into fingertips placed on top of head Finger ext w/rubberband Sitting Exercise Name Finger ext Side right Resistance Rubberband Reps/Minutes 8x2 Putty squeezing Sitting Exercise Name Yellow putty squeezing Side right Resistance Yellow putty Reps/Minutes 8x2 2 Sitting Exercise Name wrist extension Comments 5 sec hold x5 1 Sitting Exercise Name wrist flexion Reps/Minutes 5 sec hold x 5 Manual Therapy Treatment Manual Traction Cervical Details Manual C tx Body Position Supine Reps/Duration 3' Comments Elimination of R arm/wrist pain with traction. Self-Care/Home Management Treatment Education Patient Education Home Exercise Program Other Education Educated and reviewed with pt proper holding of children in front vs on her side. Discussed use of crossover body purse to avoid strap placement on R neck/shoulder. Educated pt in proper head/ neck/shoulder posturing. Activities Self-Care/Home Management Activities Issued & reviewed Median & Ulnar n. glides. 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 tx. Neural tightness in R UE is present. Pt tends to hold her head in R SB and was wearing her purse with strap on the R side. Pt also appears per her description to be holding her 2 yr old on her R side hip , using primarily her R UE due to that being her dominant side. Further postural training may be needed as pt demonstrates posturing of cervical compression of her R UE/neck. Pt needs slow progression of R UE strengthening. Physical Therapy Plan Frequency and Duration Frequency of Treatment 1x/Week Duration of Treatment 10 weeks Plan of Care Start Date 07/31/18 Plan of Care End Date 10/09/18 Next Visit Focus/Plan Next Note Type Treatment Note Next Visit Plan Progress Cervical stabilization, follow up on tolerance to isometric exercises and progress RUE strengthening as tolerated, continue education in body mechanics with child and youth program assistant.
--- NOTE | 2018-09-11 12:00 | PT.OTN ---
Current Diagnoses Other synovitis and tenosynovitis, right hand (09/11/18) Uterovaginal prolapse, unspecified (09/11/18) Physical Therapy Treatment Note PT-OP-A Visit Information Start: 07/03/18 11:40 Freq: Status: Active Protocol: Document 09/11/18 09:00 AMB (Rec: 09/11/18 10:30 AMB [email or web address]) Out-Patient Physical Therapy Visit Information Visit Information Visit Type Treatment Note Visit Start Time 09:00 Visit Stop Time 09:45 Total Visit Minutes 45 Visit Number 9 PT-OP-B Current Condition Start: 07/03/18 11:40 Freq: Status: Active Protocol: Document 07/31/18 10:15 AMB (Rec: 08/04/18 07:27 AMB [email or web address]) Current Condition History of Current Condition Onset Date 2014 Current Complaints wrist pain History of Current Condition R>L medial and lateral wrist pain. Started after her first child was born, worst after the second. Blames it on over use/ posture. Just stopped , so hoping that will help. Treatment Goals Patient/Caregiver Goals Push up her body with her wrist in extension without pain. Be able to get her daughter in her carseat without wrist pain. Prior Functional Status Baseline Function- ADL's Independent Current Functional Impairments (Reported) Functional Limitations- ADL's Pain with putting pressure through wrist to perform childcare. PT-OP-C Subjective Start: 07/03/18 11:40 Freq: Status: Active Protocol: Document 09/11/18 09:00 AMB (Rec: 09/11/18 10:30 AMB [email or web address]) OP-PT Subjective Patient Comments Patient Comments Rehana has been babying her wrist so it hasn't been hurting as much. PT-OP-I Pelvic Floor Start: 07/03/18 11:40 Freq: Status: Active Protocol: Document 07/03/18 09:45 AMB (Rec: 07/03/18 11:58 AMB [email or web address]) Pelvic Floor Assessment Urine Pelvic Floor Surgery No Urinary Symptoms Falling Out Feeling/Heavy Other Urinary Symptoms denies leaks, but not exercising a lot Voiding Frequency every 2 hours Nocturia 1 Bowel Bowel Surgery No Pelvic Clock Pelvic Clock Other Tenderness bilaterally at obterator, no tenderness at perineum, good healing of scar from tear. Prolapse Uterine Prolapse Grade 2 Perineal Descent Resting Absent Bearing Present SEMG (uV) Baseline 10 Quick Contraction 20 Recruitment Pattern Fair Relaxation Fair Holding Poor/Slow Stability of Hold Fair SEMG Stability of Rest Fair Contraction Ability Voluntary Contraction Weak Voluntary Relaxation Weak Manual Muscle Testing Left 3 Manual Muscle Testing Right 3 Manual Muscle Testing Anterior 3 Manual Muscle Testing Posterior 2 Muscle Endurance (Seconds) 5 Number of Quick Contractions In 10 4 Seconds Comments Pelvic Floor Comments Alexus had a high level of baseline muscular activity on sEMG, but was not especially tight at the introitus, did feel pressure with palpation throughout vaginal canal. PT-OP-K Range of Motion Start: 08/04/18 07:15 Freq: Status: Active Protocol: Document 07/31/18 10:15 AMB (Rec: 08/04/18 07:30 AMB [email or web address]) Wrist Goniometric Range of Motion Wrist Right Flexion Active (degrees) 80 Extension Active (degrees) 65 Ulnar Deviation Active (degrees) 30 Radial Deviation Active (degrees) 15 Left Flexion Active (degrees) 80 Extension Active (degrees) 65 Ulnar Deviation Active (degrees) 30 Radial Deviation Active (degrees) 10 ROM Limitations Comments pain with ulnar deviation on the right PT-OP-M Strength Start: 08/04/18 07:15 Freq: Status: Active Protocol: Document 07/31/18 10:15 AMB (Rec: 08/04/18 07:30 AMB [email or web address]) Wrist Strength Wrist Manual Muscle Testing Right Flexion (C7) 5 Normal Extension (C6) 5 Normal Ulnar Deviation 5 Normal Radial Deviation 5 Normal Hand Data Reviewer/Pinch Strength Hand Dominance Hand Dominance Right Hand Strength Right Data Reviewer (lbs) 45 Left Data Reviewer (lbs) 48 PT-OP-Q Treatments Start: 07/03/18 11:40 Freq: Status: Active Protocol: Document 09/11/18 09:00 AMB (Rec: 09/16/18 08:11 AMB [email or web address]) Therapeutic Exercises Supine Exercises Ulnar n glide Supine Exercise Name Ulnar n. glide Side right Reps/Minutes 5x Comments Elbow straight w/wrist flex Sitting Exercises 4 Sitting Exercise Name radial deviation Resistance isometric Reps/Minutes 5 sec hold x5 3 Sitting Exercise Name ulnar deviation Resistance isometric Reps/Minutes 5x5 2 Sitting Exercise Name wrist extension Comments 5 sec hold x5 1 Sitting Exercise Name wrist flexion Reps/Minutes 5 sec hold x 5 Manual Therapy Treatment Joint Mobilizations 2 Joint c-spine Direction UPA Grade II Body Position Hooklying Manual Traction Cervical Details Manual C tx Body Position Supine Reps/Duration 5 PT-OP-R Modalities Start: 08/07/18 10:19 Freq: Status: Active Protocol: Document 09/11/18 09:00 AMB (Rec: 09/16/18 08:11 AMB [email or web address]) Spinal Traction Traction Treatment Cervical Method Mechanical Patient Position Hooklying Force Applied (Pounds) 10 Duration of Treatment (Minutes) 10 Heating Pad Applied No PT-OP-T Assessment and Plan Start: 07/03/18 11:40 Freq: Status: Active Protocol: Document 09/11/18 09:00 AMB (Rec: 09/16/18 08:11 AMB [email or web address]) Physical Therapy Assessment Goals Five Impairment wrist AROM Short Term Goal (STG) Pt will perform all wrist mobility without an increase in pain. STG Duration NOT MET Four Impairment wrist pain Short Term Goal (STG) Pt will tolerate a quadruped position for 3 minutes with 3/ 10 pain or less to show improved wrist stability. STG Duration NOT MET Clinical Education Consultant Goal (LTG) Pt will push up from a chair with her arms without an increase in pain. LTG Duration NOT MET Three Impairment muscle endurance Clinical Education Consultant Goal (LTG) Pt will be able to perform a pelvic floor contraction for at least 15 seconds, demonstrating improved endurance of musculature. LTG Duration MET Two Impairment neuromuscular control Short Term Goal (STG) Pt will be able to contract pelvic floor musculature without over-engaging lower abdominals, demonstrating improved neuromuscular control . STG Duration MET Clinical Education Consultant Goal (LTG) Pt to report no discomfort or pain with internal palpation of pelvic floor musculature so that she is able to use tampons during menstruation LTG Duration MET One Impairment weakness Short Term Goal (STG) Pt will be independent with an appriopriate home exercise program for pelvic floor strengthening. STG Duration MET Group Home Goal (LTG) Pelvic floor musculature strength to improve to at least 4/5 to increase stability and reduce symptoms of pelvic heaviness. 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 Her wrist pain is better because she has been avoiding using her wrists, but if she uses them she continues to have pain. The pain is burning/tingling in nature and while I continue to think she has tendonitis, we have been able to increase and decrease her symptoms with cervical spine testing. Given her overall ligamentous laxity and her high copay she is going to follow up with her MD regarding her tingling. Physical Therapy Plan Hold Physical Therapy Reason For Hold Alexus following up with MD regarding nerve pain.
--- NOTE | 2018-11-12 09:53 | PT.OPDS ---
Current Diagnoses Other synovitis and tenosynovitis, right hand (09/11/18) Uterovaginal prolapse, unspecified (09/11/18) Visit Care Team Role Provider Type Milagros Franklin MD Attending Provider Physician Primary Care Provider Specialty: Family Practice Address: [address] [place] [address], [facility] [place], [address] Email: [email or web address] Visit Number Visit Number 9 Discharge Summary PT-OP-B Current Condition Start: 07/03/18 11:40 Freq: Status: Active Protocol: Document 07/31/18 10:15 AMB (Rec: 08/04/18 07:27 AMB [email or web address]) Current Condition History of Current Condition Onset Date 2014 Current Complaints wrist pain History of Current Condition R>L medial and lateral wrist pain. Started after her first child was born, worst after the second. Blames it on over use/ posture. Just stopped , so hoping that will help. Treatment Goals Patient/Caregiver Goals Push up her body with her wrist in extension without pain. Be able to get her daughter in her carseat without wrist pain. Prior Functional Status Baseline Function- ADL's Independent Current Functional Impairments (Reported) Functional Limitations- ADL's Pain with putting pressure through wrist to perform childcare. PT-OP-C Subjective Start: 07/03/18 11:40 Freq: Status: Active Protocol: Document 09/11/18 09:00 AMB (Rec: 09/11/18 10:30 AMB [email or web address]) OP-PT Subjective Patient Comments Patient Comments Rehana has been babying her wrist so it hasn't been hurting as much. PT-OP-I Pelvic Floor Start: 07/03/18 11:40 Freq: Status: Active Protocol: Document 07/03/18 09:45 AMB (Rec: 07/03/18 11:58 AMB [email or web address]) Pelvic Floor Assessment Urine Pelvic Floor Surgery No Urinary Symptoms Falling Out Feeling/Heavy Other Urinary Symptoms denies leaks, but not exercising a lot Voiding Frequency every 2 hours Nocturia 1 Bowel Bowel Surgery No Pelvic Clock Pelvic Clock Other Tenderness bilaterally at obterator, no tenderness at perineum, good healing of scar from tear. Prolapse Uterine Prolapse Grade 2 Perineal Descent Resting Absent Bearing Present SEMG (uV) Baseline 10 Quick Contraction 20 Recruitment Pattern Fair Relaxation Fair Holding Poor/Slow Stability of Hold Fair SEMG Stability of Rest Fair Contraction Ability Voluntary Contraction Weak Voluntary Relaxation Weak Manual Muscle Testing Left 3 Manual Muscle Testing Right 3 Manual Muscle Testing Anterior 3 Manual Muscle Testing Posterior 2 Muscle Endurance (Seconds) 5 Number of Quick Contractions In 10 4 Seconds Comments Pelvic Floor Comments Alexus had a high level of baseline muscular activity on sEMG, but was not especially tight at the introitus, did feel pressure with palpation throughout vaginal canal. PT-OP-K Range of Motion Start: 08/04/18 07:15 Freq: Status: Active Protocol: Document 07/31/18 10:15 AMB (Rec: 08/04/18 07:30 AMB [email or web address]) Wrist Goniometric Range of Motion Wrist Right Flexion Active (degrees) 80 Extension Active (degrees) 65 Ulnar Deviation Active (degrees) 30 Radial Deviation Active (degrees) 15 Left Flexion Active (degrees) 80 Extension Active (degrees) 65 Ulnar Deviation Active (degrees) 30 Radial Deviation Active (degrees) 10 ROM Limitations Comments pain with ulnar deviation on the right PT-OP-M Strength Start: 08/04/18 07:15 Freq: Status: Active Protocol: Document 07/31/18 10:15 AMB (Rec: 08/04/18 07:30 AMB [email or web address]) Wrist Strength Wrist Manual Muscle Testing Right Flexion (C7) 5 Normal Extension (C6) 5 Normal Ulnar Deviation 5 Normal Radial Deviation 5 Normal Hand Licensed Insurance Agent/Pinch Strength Hand Dominance Hand Dominance Right Hand Strength Right Licensed Insurance Agent (lbs) 45 Left Licensed Insurance Agent (lbs) 48 PT-OP-T Assessment and Plan Start: 07/03/18 11:40 Freq: Status: Active Protocol: Document 11/12/18 09:49 AMB (Rec: 11/12/18 09:53 AMB [email or web address]) Physical Therapy Assessment Goals Five Impairment wrist AROM Short Term Goal (STG) Pt will perform all wrist mobility without an increase in pain. STG Duration NOT MET Four Impairment wrist pain Short Term Goal (STG) Pt will tolerate a quadruped position for 3 minutes with 3/ 10 pain or less to show improved wrist stability. STG Duration NOT MET License Clerk Goal (LTG) Pt will push up from a chair with her arms without an increase in pain. LTG Duration NOT MET Three Impairment muscle endurance License Clerk Goal (LTG) Pt will be able to perform a pelvic floor contraction for at least 15 seconds, demonstrating improved endurance of musculature. LTG Duration MET Two Impairment neuromuscular control Short Term Goal (STG) Pt will be able to contract pelvic floor musculature without over-engaging lower abdominals, demonstrating improved neuromuscular control . STG Duration MET License Clerk Goal (LTG) Pt to report no discomfort or pain with internal palpation of pelvic floor musculature so that she is able to use tampons during menstruation LTG Duration MET One Impairment weakness Short Term Goal (STG) Pt will be independent with an appriopriate home exercise program for pelvic floor strengthening. STG Duration MET License Clerk Goal (LTG) Pelvic floor musculature strength to improve to at least 4/5 to increase stability and reduce symptoms of pelvic heaviness. LTG Duration 10 weeks Assessment Summary Assessment Alexus has resolved her pelvic floor symptoms well, although she will likely need to continue to do pelvic floor strengthening for the assisted. Her wrist pain is better because she has been avoiding using her wrists, but if she uses them she continues to have pain. The pain is burning/tingling in nature and while I continue to think she has tendonitis, we have been able to increase and decrease her symptoms with cervical spine testing. Given her overall ligamentous laxity and her high copay she is going to follow up with her MD regarding her tingling. She had an EMG, but has not followed up with PT at this time, so we will discharger her at this time.
== END 2018-11-13 17:19 | disposition home or self-care (01) ==
LOC: PHYS 09:00
PROVIDERS: PCP Family Medicine; Visit Provider Family Medicine
DX: N81.4 Uterovaginal prolapse, unspecified (principal); M65.841 Other synovitis and tenosynovitis, right hand
CPT/HCPCS: 97012; 97018; 97035; 97110; 97112; 97140; 97161; 97164; 97535

== ENCOUNTER → 2018-09-12 11:33 | Outpatient (CLI) | payer OTHER, SELFPAY ==
--- NOTE | 2018-09-12 11:37 | DI.RAD.S_ITS ---
PROCEDURE: XR CERVICAL SPINE 2V OR 3V INDICATIONS: NECK PAIN TECHNIQUE: 3 view(s) of the cervical spine were acquired. COMPARISON: None. FINDINGS: Bones: No fractures or dislocations to the T4 level. The lateral masses of C1 appear intact on the odontoid view. No suspicious bony lesions. Soft tissues: No prevertebral soft tissue swelling. IMPRESSION: Cervical spine without acute radiographic abnormalities or significant spondylitic changes. Dictated by: Duane Fernandez M.D. on 09/12/2018 at 13:52 Approved by: Duane Fernandez M.D. on 09/12/2018 at 13:53
== END ==
PROVIDERS: PCP Family Medicine; Visit Provider Family Medicine
DX: M54.2 Cervicalgia (principal)
CPT/HCPCS: 72040

== ENCOUNTER → 2018-10-02 10:46 | Outpatient (CLI) | payer OTHER, SELFPAY | PROVIDERS: PCP Family Medicine; Visit Provider Family Medicine | DX: M65.841 Other synovitis and tenosynovitis, right hand (principal) | CPT/HCPCS: 95885; 95886; 95909 ==

== ENCOUNTER → 2018-11-25 13:41 | Outpatient (CLI) | payer OTHER, SELFPAY | PROVIDERS: PCP Family Medicine | DX: Z23 Encounter for immunization (principal) | CPT/HCPCS: 90471; 90686 ==

== ENCOUNTER → 2018-12-26 08:11 | Outpatient (CLI) | payer OTHER, SELFPAY ==
--- NOTE | 2018-12-26 | DI.MG.S_ITS ---
BILATERAL DIGITAL DIAGNOSTIC MAMMOGRAM 3D/2D: 12/26/2018 CLINICAL: Right breast lump. Baseline mammogram. Comparison is made to exam dated: 12/24/2013 [facility]. The tissue of both breasts is heterogeneously dense. This may lower the sensitivity of mammography. There is a triangular marker overlying the skin of the lower outer right breast immediately adjacent the nipple at the site of the patient's reported palpable abnormality. There is a small oval indistinct focal asymmetry immediately underlying the triangular marker/skin surface at retroareolar depth. There was an asymmetry of the superior right breast at middle to posterior depth on initial RMLO view which resolved and has the appearance of benign fibroglandular tissue on spot compression and tomosynthesis RLM and RMLO views. No significant masses, calcifications, or other findings are seen in either breast. IMPRESSION: INCOMPLETE: NEEDS ADDITIONAL IMAGING EVALUATION 1) There is a triangular marker overlying the skin of the lower outer right breast immediately adjacent the nipple at the site of the patient's reported palpable abnormality. There is a small oval indistinct focal asymmetry immediately underlying the triangular marker/skin surface at retroareolar depth. Targeted diagnostic ultrasound recommended for further evaluation, which will be performed immediately following this exam. 2) There was an asymmetry of the superior right breast at middle to posterior depth on initial RMLO view which resolved and has the appearance of benign fibroglandular tissue on spot compression and tomosynthesis RLM and RMLO views. Targeted diagnostic ultrasound recommended for further evaluation, which will be performed immediately following this exam. This exam was interpreted at Station ID: [id number]. NOTE: For mammograms, a report in lay terms will be sent to the patient. Approximately 15% of breast malignancies will not be visualized mammographically. In the management of a palpable breast mass, a negative mammogram must not discourage biopsy of a clinically suspicious lesion. Electronically Signed By: Eleazar Dubose M.D. ecl/:12/26/2018 10:32:28 ACR BI-RADS Category 0: Incomplete [id number]
--- NOTE | 2018-12-26 | DI.US.S_ITS ---
LIMITED ULTRASOUND OF RIGHT BREAST: 12/26/2018 CLINICAL: Palpable right breast lump. Comparison is made to exams dated: 12/26/2018 mammogram and 12/24/2013 [facility]. Color flow and real-time ultrasound of the right breast 7-2 o'clock region were performed. Goyal scale images of the real-time examination were reviewed. There is a 0.6 x 0.4 x 0.5 cm oval circumscribed hypoechoic mass with posterior acoustic enhancement and no vascularity on Doppler imaging in the right breast at 8:00 retroareolar position. This mass previously measured 0.6 x 0.4 x 0.6 cm on comparison right breast ultrasound of 12/24/13. Targeted real-time grayscale and Doppler ultrasound of the superior right breast from 10:00 through 2:00 positions demonstrates no ultrasound correlate for the previously identified asymmetry of the superior right breast which also resolved and had the appearance of benign fibroglandular tissues on spot compression and tomosynthesis views of the diagnostic mammogram performed earlier today on 12/26/18. IMPRESSION: BENIGN Stable 0.6 x 0.5 x 0.4 cm oval circumscribed hypoechoic mass in the 8:00 retroareolar position, most consistent with a complicated cyst or small fibroadenoma. 5 year stability dating back to comparison exam of 12/24/13 is consistent with benignity. No other suspicious masses or abnormalities are identified within the imaged areas of the right breast. Annual screening mammography beginning at age 40 is recommended, unless earlier high-risk screening is warranted due to individual patient risk factors for the development of breast malignancy. The patient is advised to monitor her breasts and to return sooner for re-evaluation should she feel anything grow or change. This exam was interpreted at Station ID: [id number]. Electronically Signed By: Eleazar Dubose M.D. ecl/:12/26/2018 13:48:46 letter sent: Clinical Evaluation Ultrasound BI-RADS: 2 Benign
== END ==
PROVIDERS: PCP Family Medicine; Visit Provider Family Medicine
DX: R92.8 Other abnormal and inconclusive findings on diagnostic imaging of breast (principal); N63.13 Unspecified lump in the right breast, lower outer quadrant
CPT/HCPCS: 76642; 77066; G0279

== ENCOUNTER → 2019-12-15 09:14 | Outpatient (CLI) | payer OTHER, SELFPAY | PROVIDERS: PCP Family Medicine; Referring Provider Internal Medicine; Visit Provider Internal Medicine | DX: Z23 Encounter for immunization (principal) | CPT/HCPCS: 90471; 90686 ==

== ENCOUNTER → 2020-03-09 15:01 | Outpatient (CLI) | payer OTHER, SELFPAY ==
[2020-03-09] MEDS: COVID-19 VACC(MODERNA-1)/PF 100 MCG/0.5 ML VIAL IM (15:09)
== END ==
PROVIDERS: PCP Family Medicine; Visit Provider Internal Medicine
DX: Z23 Encounter for immunization (principal)
CPT/HCPCS: 0011A; 91301

== ENCOUNTER → 2020-04-05 09:15 | Outpatient (CLI) | payer OTHER, SELFPAY ==
[2020-04-05] MEDS: COVID-19 VACC #2, MRNA(MOD) 100 MCG/0.5 ML VIAL IM (09:18)
== END ==
PROVIDERS: PCP Family Medicine; Visit Provider Internal Medicine
DX: Z23 Encounter for immunization (principal)
CPT/HCPCS: 0012A; 91301

== ENCOUNTER → 2020-05-06 09:10 | Outpatient (CLI) | payer OTHER, SELFPAY ==
--- NOTE | 2020-05-06 | DI.US.S_ITS ---
LIMITED ULTRASOUND OF RIGHT BREAST: 05/06/2020 CLINICAL: Palpable right breast lump. Comparison is made to exams dated: 05/06/2020 mammogram, 12/26/2018 ultrasound, 12/26/2018 mammogram, and 12/24/2013 [facility]. Color flow and continuous wave Doppler ultrasound of the right breast were performed. There is a stable benign 0.6 cm x 0.7 cm x 0.5 cm oval mass with a circumscribed margin in the right breast at 8 o'clock in the retroareolar region. This oval mass is hypoechoic. This correlates as palpated and with mammography findings. This mass is stable dating back to the exam from 12/24/2013, and is therefore considered benign. IMPRESSION: BENIGN There is no sonographic evidence of malignancy. The stable 0.6 cm x 0.7 cm x 0.5 cm oval mass in the right breast is benign. Follow-up with ACR/ACS guidelines. This exam was interpreted at Station ID: [id number]. Electronically Signed By: Brayan hernandez/keith:05/06/2020 10:49:37 letter sent: Normal Exam Ultrasound BI-RADS: 2 Benign
--- NOTE | 2020-05-06 | DI.MG.S_ITS ---
UNILATERAL RIGHT DIGITAL DIAGNOSTIC MAMMOGRAM 3D/2D: 05/06/2020 CLINICAL: Right breast lump. Comparison is made to exams dated: 12/26/2018 mammogram, 12/26/2018 ultrasound, and 12/24/2013 [facility]. The tissue of right breast is heterogeneously dense. This may lower the sensitivity of mammography. There is an oval focal asymmetry in the right breast at 8 o'clock in the retroareolar region. This is not significantly changed and correlates as palpated. No other significant masses or calcifications are seen in the breast. IMPRESSION: INCOMPLETE: NEEDS ADDITIONAL IMAGING EVALUATION The oval focal asymmetry in the right breast is indeterminate. An ultrasound is recommended. Targeted ultrasound is recommended for further evaluation, which will be performed immediately following this exam. This exam was interpreted at Station ID: [id number]. NOTE: For mammograms, a report in lay terms will be sent to the patient. Approximately 15% of breast malignancies will not be visualized mammographically. In the management of a palpable breast mass, a negative mammogram must not discourage biopsy of a clinically suspicious lesion. Electronically Signed By: Brayan hernandez/keith:05/06/2020 10:47:21 ACR BI-RADS Category 0: Incomplete [id number]
== END ==
PROVIDERS: PCP Family Medicine; Referring Provider Family Medicine; Visit Provider Family Medicine
DX: R92.8 Other abnormal and inconclusive findings on diagnostic imaging of breast (principal); N63.13 Unspecified lump in the right breast, lower outer quadrant
CPT/HCPCS: 76642; 77065; G0279

== ENCOUNTER 2020-07-16 14:14 | Emergency (ER) | payer OTHER, SELFPAY ==
[2020-07-16 14:28] VITALS: BP 142/87; PULSE 95; RESP 16; TEMP 37; O2SAT 99; BMI 29.8
--- NOTE | 2020-07-16 15:07 | ED_ITS ---
HPI - Abdominal Pain General Chief Complaint: Abdominal Pain Stated Complaint: ABD PAIN SINCE YESTERDAY Time Seen by Provider: 07/16/20 14:19 Source: patient Mode of arrival: Ambulatory Limitations: no limitations History of Present Illness HPI narrative: Patient is a 30-year-old female who presents with abdominal pain that started yesterday. She states it initially felt like is little bit lower yesterday but now seems to be in her right upper quadrant her rib hurts and even her right shoulder hurts but she thinks that is muscular. She denies any nausea or vomiting. She had a good bowel movement yesterday no fever. She feels really bloated and that the abdominal muscle is tender to touch. She admits to eating fried food yesterday. MD complaint: abdominal pain Onset (ago): day(s) (1) Location: RUQ Severity: mild Quality: aching Radiation: other (Ribs and right shoulder) Exacerbating factors: nothing Related Data Home Medications Medication Instructions Recorded Confirmed VIT 15/IRON CB/FA/DSS 1 ea PO #0 03/23/16 (MYNATAL ADVANCE TABLET) Previous Rx's Medication Instructions Recorded oxycodone-acetaminophen 0 tab PO Q4HP PRN #20 10/04/16 ibuprofen 600 mg PO TIDP PRN #40 tab 10/05/16 Allergies Allergy/AdvReac Type Severity Reaction Status Date / Time cefaclor [From Ceclor] Allergy Unknown Unverified 06/02/18 08:50 Penicillins [PENICILLINS] Allergy Unknown Unverified 06/02/18 08:50 Review of Systems Review of Systems Narrative: GENERAL: Denies chills, fatigue, malaise, fever, sweats, travel HEENT: Denies sinus pain, ear pain, sore throat, difficulty swallowing, neck freddie n RESPIRATORY: Denies dyspnea, cough, wheezing, hemoptysis, sputum. CARDIOVASCULAR: Denies chest pain, palpitations, orthopnea, edema GASTROINTESTINAL: See HPI : Denies dysuria, frequency, incontinence, hematuria, urinary retention, flank pain. MUSCULOSKELETAL: Denies weakness, joint pain, or bony pain SKIN: No rash, no erythema, no pruritus NEUROLOGIC: Denies weakness, dizziness, headache, numbness, change in speech, confusion PSYCHIATRIC: No concerning psychosocial issues. 12 point review of systems is negative except for those stated above and HPI Patient History Medical History Depression Surgical History History of third molar tooth extraction Status post tonsillectomy and adenoidectomy Social History Smoking Status: Never smoker Smoking Status: Never smoker alcohol intake frequency: holidays/special occasions only Substance Use Type: does not use Exam Initial Vital Signs Initial Vital Signs: Vital Signs Temperature 98.6 F 07/16/20 14:28 Pulse Rate 95 H 07/16/20 14:28 Respiratory Rate 16 07/16/20 14:28 Blood Pressure 142/87 H 07/16/20 14:28 Pulse Oximetry 99 07/16/20 14:28 GENERAL: Well-appearing 30-year-old female, well-nourished and in no acute distress. HEENT: Head atraumatic,EOMI, pupils reactive, face symmetric, moist mucous membranes CARDIOVASCULAR: Regular rate and rhythm without murmurs, rubs or gallops. RESPIRATORY: Breath sounds equal bilaterally, no wheezes rales or rhonchi. ABDOMEN: Soft, positive Cid sign no lower abdominal pain : No CVA tenderness EXTREMITIES: Normal range of motion, no clubbing or edema. Neurovascularly intact NEUROLOGICAL: Alert and oriented x4.Normal gait and speech. SKIN: Warm, dry, no laceration, no petechiae, no rashes or lesions. Course Orders Ordered: ED Orders 07/16/20 15:12 US abdomen limited Stat 07/16/20 16:00 Complete Blood Count AUTO DIFF Stat Comprehensive Metabolic Panel Stat Lipase Stat Vital Signs Vital signs: Vital Signs - 8 hr 07/16/20 14:28 07/16/20 16:53 Temperature 98.6 F Pulse Rate 95 H 98 H Respiratory Rate 16 18 Blood Pressure 142/87 H 132/86 Pulse Oximetry 99 100 MDM - Abdominal Pain Lab Data Attestation: I reviewed the patient's lab results. Result diagrams: 07/16/20 16:00 07/16/20 16:00 Labs: Lab Results 07/16/20 07/16/20 Range/Units 16:00 16:00 WBC 11.1 H (4.5-11.0) X10^3/uL RBC 4.10 (4.0-5.2) X10^6/uL Hgb 13.4 (12.0-16.0) g/dL Hct 39.0 (36-46) % MCV 95.1 (80-100) fL MCH 32.6 (26-34) PG MCHC 34.3 (30-36) % RDW 12.4 (11.6-14.8) % Plt Count 271 (150-400) X10^3/uL Neut % (Auto) 73.3 (50-75) % Lymph % (Auto) 15.5 L (25-40) % [place] % (Auto) 10.1 (3-14) % Eos % (Auto) 0.7 L (2-4) % Baso % (Auto) 0.4 (0-2) % Neut # (Auto) 8200 H (5991-8796) /uL Lymph # (Auto) 1700 (0588-0125) /uL [place] # (Auto) 1100 H (0-900) /uL Eos # (Auto) 100 (0-450) /uL Baso # (Auto) 0 (0-100) /uL Sodium 137 (137-145) mmol/L Potassium 3.8 (3.4-5.1) mmol/L Chloride 102 (98-107) mmol/L Carbon Dioxide 30 (22-32) mmol/L BUN 12 (7-17) mg/dL Creatinine 0.85 (0.52-1.04) mg/dL Estimated GFR > 60.0 (>60) mL/min BUN/Creatinine Ratio 14.1 (6-22) Glucose 106 H (70-100) mg/dL Calcium 9.2 (8.4-10.2) mg/dL Total Bilirubin 0.4 (0.2-1.3) mg/dL AST 26 (14-36) IU/L ALT 15 (<35) IU/L Alkaline Phosphatase 73 (38-126) U/L Total Protein 7.5 (6.3-8.2) g/dL Albumin 4.2 (3.5-5.0) g/dL Globulin 3.3 (1.7-4.1) g/dL Albumin/Globulin Ratio 1.3 (1.0-2.8) Lipase 41 (23-300) U/L Point of care testing: Point of Care Testing Test Results Negative Urine Dip Bedside Urine Glucose Negative Bedside Urine Bilirubin - Negative Bedside Urine Ketone - Negative Urine Specific [place] 1.015 Bedside Urine Occult Blood - Negative Bedside Urine pH 6.5 Bedside Urine Protein - Negative Bedside Urine Urobilinogen - Negative Bedside Urine Nitrite - Negative Bedside Urine Leukocytes - Negative Esterase Imaging Data US - abdomen: Radiologist's Impression: PROCEDURE: US ABDOMEN LIMITED INDICATIONS: ruq TECHNIQUE: Real-time scanning was performed of the abdominal and retroperitoneal organs, with image documentation. COMPARISON: None. FINDINGS: Liver: Liver is normal in size and homogeneous in echotexture. Gallbladder: Only mildly distended somewhat limiting evaluation. Gallbladder wall thickness measures up to 3 millimeters. There is no gallstones, pericholecystic fluid, or a sonographic Cid sign. Biliary ducts: Intrahepatic bile ducts are non-dilated. Extrahepatic bile duct caliber measures 5.1 mm. Normal is 6-7 mm or less in diameter, or 10 mm or less post-cholecystectomy. Pancreas: Visualized portions of the pancreas are sonographically normal. Right kidney: Right kidney measures 9.8 centimeters in length. Normal cortical thickness and echogenicity. No hydronephrosis or evidence of mass or stone. Miscellaneous: No free abdominal fluid. IMPRESSION: Unremarkable right upper quadrant ultrasound. The gallbladder is only mildly distended somewhat limiting evaluation and likely causing mild prominence of the g allbladder wall, otherwise no evidence of cholecystitis. Dictated by: Bartolome Pfeiffer D.O. on 07/16/2020 at 15:21 MDM Narrative Medical decision making narrative: Patient overall appears well she has mild leukocytosis of 11 with mild pain. She is not needing or wanting anything for pain in the emergency department. Ultrasound is negative. Unclear etiology of her symptoms at this time. I do not believe her to need a CT for her pain at this time, however symptoms worsen discussed with her to return to the ER for further evaluation Discharge Plan Departure Patient Disposition: Home Clinical Impression: Abdominal pain Qualifiers: Abdominal location: right upper quadrant Qualified Code(s): R10.11 - Right upper quadrant pain Instructions: DI for Abdominal Pain-Adult Activity Restrictions/Additional Instructions: *You have been diagnosed with abdominal pain *What to do: Unclear exactly what is causing her pain today. Her blood work and ultrasound were overall reassuring no signs of gallbladder disease. *Continue to take medications as directed Ibuprofen 800 mg every 8 hours if needed for [id number] pain *Follow up with your primary care provider in 2-3 days *Return to ER if you should have increasing pain, persistent vomiting, or any new, worsening or concerning symptoms Prescriptions: No Action VIT 15/IRON CB/FA/DSS (MYNATAL ADVANCE TABLET) 1 ea PO Qty: 0 RF: 0 oxycodone-acetaminophen 5 MG/325 MG tablet 0 tab PO Q4HP PRNQty: 20 RF: 0 ibuprofen 600 MG tablet 600 mg PO TIDP PRNQty: 40 RF: 2 Referrals: Milagros Franklin MD [Primary Care Provider] -
--- NOTE | 2020-07-16 15:12 | DI.US.S_ITS ---
PROCEDURE: US ABDOMEN LIMITED INDICATIONS: ruq TECHNIQUE: Real-time scanning was performed of the abdominal and retroperitoneal organs, with image documentation. COMPARISON: None. FINDINGS: Liver: Liver is normal in size and homogeneous in echotexture. Gallbladder: Only mildly distended somewhat limiting evaluation. Gallbladder wall thickness measures up to 3 millimeters. There is no gallstones, pericholecystic fluid, or a sonographic Cid sign. Biliary ducts: Intrahepatic bile ducts are non-dilated. Extrahepatic bile duct caliber measures 5.1 mm. Normal is 6-7 mm or less in diameter, or 10 mm or less post-cholecystectomy. Pancreas: Visualized portions of the pancreas are sonographically normal. Right kidney: Right kidney measures 9.8 centimeters in length. Normal cortical thickness and echogenicity. No hydronephrosis or evidence of mass or stone. Miscellaneous: No free abdominal fluid. IMPRESSION: Unremarkable right upper quadrant ultrasound. The gallbladder is only mildly distended somewhat limiting evaluation and likely causing mild prominence of the gallbladder wall, otherwise no evidence of cholecystitis. Dictated by: Bartolome Pfeiffer D.O. on 07/16/2020 at 15:21 Approved by: Bartolome Pfeiffer D.O. on 07/16/2020 at 15:23
[2020-07-16 16:25] LABS: Add Manual Diff / Slide Review NO; Basophils Absolute Auto 0 /uL (0-100); Basophils Percent Auto 0.4 % (0-2); Eosinophils Absolute Auto 100 /uL (0-450); Eosinophils Percent Auto 0.7 % (2-4); Hemoglobin 13.4 g/dL (12.0-16.0); Lymphocytes Absolute Auto 1700 /uL (1100-4500); Lymphocytes Percent Auto 15.5 % (25-40); Mean Corpuscular HGB Conc 34.3 % (30-36); Mean Corpuscular Hemoglobin 32.6 PG (26-34); Mean Corpuscular Volume 95.1 fL (80-100); Monocytes Absolute Auto 1100 /uL (0-900); Monocytes Percent Auto 10.1 % (3-14); Neutrophils Absolute Auto 8200 /uL (1500-7000); Neutrophils Percent Auto 73.3 % (50-75); Platelet Count 271 X10^3/uL (150-400); Red Cell Distribution Width 12.4 % (11.6-14.8); White Blood Cell Count 11.1 X10^3/uL (4.5-11.0)
[2020-07-16 16:28] LABS: Alanine Aminotransferase 15 IU/L (<35); Albumin 4.2 g/dL (3.5-5.0); Albumin Globulin Ratio 1.3 (1.0-2.8); Alkaline Phosphatase 73 U/L (38-126); Aspartate Aminotransferase 26 IU/L (14-36); BUN Creatinine Ratio 14.1 (6-22); Bilirubin Total 0.4 mg/dL (0.2-1.3); Blood Urea Nitrogen 12 mg/dL (7-17); Calcium 9.2 mg/dL (8.4-10.2); Carbon Dioxide 30 mmol/L (22-32); Chloride 102 mmol/L (98-107); Estimated Glomerular Filt Rate > 60.0 mL/min (>60); Globulin 3.3 g/dL (1.7-4.1); Glucose 106 mg/dL (70-100); HEMOLYSIS < 15 (0-50); Lipase 41 U/L (23-300); Potassium 3.8 mmol/L (3.4-5.1); Sodium 137 mmol/L (137-145); Total Protein 7.5 g/dL (6.3-8.2)
[2020-07-16 16:53] VITALS: BP 132/86; PULSE 98; RESP 18; O2SAT 100
== END 2020-07-16 17:00 | disposition home or self-care (01) ==
PROVIDERS: Emergency Medicine; Emergency Provider Emergency Medicine; PCP Family Medicine
DX: R10.11 Right upper quadrant pain (principal); D72.829 Elevated white blood cell count, unspecified
CPT/HCPCS: 36415; 76705; 80053; 81003; 81025; 83690; 85025; 99284

== ENCOUNTER → 2020-07-26 13:54 | Outpatient (CLI) | payer OTHER, SELFPAY ==
--- NOTE | 2020-07-26 13:56 | DI.CT.S_ITS ---
PROCEDURE: CT ABDOMEN PELVIS W CON INDICATIONS: Unspecified abdominal pain TECHNIQUE: After the administration of oral and intravenous contrast, 5 mm thick sections acquired from the diaphragms to the symphysis. 5 mm thick coronal and sagittal reformats were performed. For radiation dose reduction, the following was used: automated exposure control, adjustment of mA and/or kV according to patient size. COMPARISON: None. FINDINGS: ABDOMEN: Lung bases: Normal. Heart: No significant findings. Liver: Hepatic steatosis noted Gallbladder: Negative Bile ducts: Normal. Pancreas: Normal. Spleen: Normal. Adrenals: Normal. Kidneys and Ureters: Normal. Stomach and duodenum: Normal. Bowel: Colonic diverticulosis is seen without evidence of acute complication. Moderate amount of stool seen throughout the colon. Appendix is not clearly identified however no suspicious pericecal inflammatory changes are seen. Other: No free fluid or air. Abdominal nodes: Normal. Aorta and IVC: Normal in size. Ventral wall: Normal. PELVIS: Bladder: Normal. Inguinal region: No hernia. Pelvic nodes: Normal. Bones: No suspicious bony lesions. No vertebral body compression fractures. IMPRESSION: No acute abnormality. Appendix is not clearly identified however no suspicious pericecal inflammatory changes are seen. Hepatic steatosis. Incidentally noted colonic diverticulosis. Dictated by: Jeyson Cevallos M.D. on 07/26/2020 at 15:49 Approved by: Jeyson Cevallos M.D. on 07/26/2020 at 15:52
== END ==
PROVIDERS: PCP Family Medicine; Referring Provider Family Medicine; Visit Provider Family Medicine
DX: R10.9 Unspecified abdominal pain (principal); K76.0 Fatty (change of) liver, not elsewhere classified; K57.90 Diverticulosis of intestine, part unspecified, without perforation or abscess without bleeding
CPT/HCPCS: 74177

== ENCOUNTER → 2020-11-18 14:41 | Outpatient (CLI) | payer OTHER, SELFPAY ==
--- NOTE | 2020-11-18 14:42 | DI.US.S_ITS ---
PROCEDURE: US OB <= 14 WEEKS FETUS INDICATIONS: SIZE AND DATES OUTSIDE/PRIOR DATING DATA: Last menstrual period (LMP): 10/01/2020 LMP-based estimated date of delivery (GEORGE): 07/08/2021. First dating scan (date and location): 11/18/2020. Estimated date of delivery (GEORGE) from first dating scan: 07/10/2021. TECHNIQUE: Real-time scanning was performed of the fetus and maternal pelvic organs, with image documentation. Endovaginal scanning was also performed to better visualize the fetus and maternal ovaries. COMPARISON: None. FINDINGS: Embryo: [place]-rump length measures 0.7 cm corresponding to 6 weeks 4 days. Heart rate: 121 Measurement variability in dating: +/- 4 weeks by LMP, +/- 7 days by mean sac diameter (use before 6 weeks gestation if crown-rump length not able to be measured), +/- 5 days by crown-rump length (up to 8 weeks 6 days gestation), +/- 7 days by crown-rump length (up to 13 weeks 6 days gestation). Maternal organs: Ovaries within normal limits . IMPRESSION: 6 week 4 day single living IUP. Dictated by: Yves ESPARZA Interpreted: Homar Ortega MD on 11/18/2020 at 15:20 Transcribed by: MATI on 11/18/2020 at 15:21 Approved by: Homar Ortega M.D. on 11/21/2020 at 10:36
== END ==
PROVIDERS: PCP Family Medicine; Referring Provider Family Medicine; Visit Provider Family Medicine
DX: Z34.82 Encounter for supervision of other normal pregnancy, second trimester (principal)
CPT/HCPCS: 76801; 76817

== ENCOUNTER → 2021-01-31 19:10 | Outpatient (CLI) | payer OTHER, SELFPAY | PROVIDERS: PCP Family Medicine; Referring Provider Internal Medicine; Visit Provider Internal Medicine | DX: Z23 Encounter for immunization (principal) | CPT/HCPCS: 90471; 90686 ==

== ENCOUNTER → 2021-02-28 07:42 | Outpatient (CLI) | payer OTHER, SELFPAY ==
--- NOTE | 2021-02-28 | DI.US.S_ITS ---
PROCEDURE: US OB >= 14 WEEKS FETUS INDICATIONS: ANATOMY OUTSIDE/PRIOR DATING DATA: Last menstrual period (LMP): September 03, 2020. LMP-based estimated date of delivery (GEORGE): July 08, 2021. First dating scan (date and location): [facility]; November 18, 2020. Estimated date of delivery (GEORGE) from first dating scan: July 10, 2021. The calculations are made using the ultrasound GEORGE of July 10, 2021. TECHNIQUE: Real-time scanning was performed of the fetus, with image documentation and biometric measurements. COMPARISON: None. FINDINGS: General: A single living intrauterine gestation is present. Presentation: Breech. Placenta: Placental position is posterior , without previa. Amniotic fluid index: 15.2 cm, normal range is 5-24 cm. Single deepest vertical pocket is 4.8 cm. heart rate: 136 beats per minute. Maternal cervical canal: 4.1 cm long. Normal lower limit is 2.5 cm. biometrics: Biparietal diameter: 5.2 cm Head circumference: 19.8 cm Abdominal circumference: 18 cm Femur length: 3.8 cm Clinically estimated gestational age: 21 weeks, 1 day Composite gestational age from present scan: 22 weeks, 1 day Estimated weight and percentile: 500 g +/-74 g; 96th percentile Anatomic survey: Neuro: Ventricles are non-dilated at less than 10 mm. Cisterna magna is normal at 3-11 mm. Cerebellum is normal in size and morphology. Nuchal skin fold: Normal at less than 6 mm between 14-21 weeks gestational age. Face: Nose and lips, facial profile are normal. Spine: No evidence for spina bifida. Heart: 4-chambered heart is present, with normal ventricular outflow tracts. Diaphragm: Diaphragm is intact. Stomach: Left-sided stomach is present. Kidneys: No hydronephrosis. Normal is less than 5 mm in 2nd trimester, less than 7 mm in 3rd trimester. Cord: 3-vessel cord has orthotopic insertion. Bladder: Normal in size. Extremities: All 4 extremities identified. IMPRESSION: Live single intrauterine gestation as detailed above. We strive to produce accurate, complete, and clear reports of imaging services. To assist us in improving patient care, this report was composed using standard report templates and voice recognition software. Therefore, it may contain abnormal punctuation, insertions and/or omissions. Occasional wrong-word or sound-alike substitutions may occur. Though we review the report and make efforts to correct it, we do recommend that the report be read carefully in proper context to recognize any text inaccuracies. Dictated by: Kenny Smith M.D. on 02/28/2021 at 9:07 Approved by: Kenny Smith M.D. on 02/28/2021 at 9:09
== END ==
PROVIDERS: PCP Family Medicine; Referring Provider Student in an Organized Health Care Education/Training Program; Visit Provider Student in an Organized Health Care Education/Training Program
DX: Z36.89 Encounter for other specified antenatal screening (principal); Z3A.22 22 weeks gestation of pregnancy
CPT/HCPCS: 76811

== ENCOUNTER → 2021-02-28 13:04 | Outpatient (CLI) | payer OTHER, SELFPAY ==
[2021-02-28 15:40] LABS: COVID19 -Nasal RAPID Negative (Negative)
== END ==
PROVIDERS: PCP Family Medicine; Visit Provider Physician Assistant
DX: Z20.822 Contact with and (suspected) exposure to COVID-19 (principal)
CPT/HCPCS: 87635

== ENCOUNTER → 2021-03-06 14:42 | Outpatient (CLI) | payer OTHER, SELFPAY ==
[2021-03-06 19:33] LABS: COVID19 -Nasal RAPID Negative (Negative)
== END ==
PROVIDERS: PCP Family Medicine; Visit Provider Physician Assistant
DX: Z20.822 Contact with and (suspected) exposure to COVID-19 (principal); R05.9 Cough, unspecified
CPT/HCPCS: 87635

== ENCOUNTER → 2021-06-22 19:06 | Outpatient (ROUT) | payer OTHER, SELFPAY | PROVIDERS: PCP Family Medicine; Visit Provider Student in an Organized Health Care Education/Training Program | DX: Z34.80 Encounter for supervision of other normal pregnancy, unspecified trimester (principal) | CPT/HCPCS: 87081 ==

== ENCOUNTER 2021-07-10 11:18 | Outpatient (CLI) | payer OTHER, SELFPAY ==
[2021-07-10 11:55] VITALS: BP 125/82; PULSE 86; RESP 20; TEMP 36.2
== END 2021-07-10 11:58 | disposition home or self-care (01) ==
LOC: OB 07-11 08:04
PROVIDERS: PCP Family Medicine; Referring Provider Student in an Organized Health Care Education/Training Program; Visit Provider Student in an Organized Health Care Education/Training Program
DX: O48.0 Post-term pregnancy (principal); Z3A.40 40 weeks gestation of pregnancy
CPT/HCPCS: 59025; G0378; G0379

== ENCOUNTER 2021-07-14 09:03 | Outpatient (CLI) | payer OTHER, SELFPAY | END 2021-07-14 10:18 | disposition home or self-care (01) | LOC: LABOR 09:05 → OB 07-18 06:48 | PROVIDERS: PCP Family Medicine; Referring Provider Student in an Organized Health Care Education/Training Program; Visit Provider Student in an Organized Health Care Education/Training Program | DX: O48.0 Post-term pregnancy (principal); Z3A.41 41 weeks gestation of pregnancy | CPT/HCPCS: 59025; G0378; G0379 ==

== ENCOUNTER 2021-07-17 02:44 | Inpatient (IN) | payer OTHER, SELFPAY ==
[2021-07-17 04:48] LABS: Add Manual Diff / Slide Review NO; Basophils Absolute Auto 100 /uL (0-100); Basophils Percent Auto 0.6 % (0-2); Eosinophils Absolute Auto 100 /uL (0-450); Eosinophils Percent Auto 0.8 % (2-4); Hematocrit 35.8 % (36-46); Hemoglobin 12.3 g/dL (12.0-16.0); Lymphocytes Absolute Auto 2400 /uL (1100-4500); Lymphocytes Percent Auto 19.2 % (25-40); Mean Corpuscular HGB Conc 34.3 % (30-36); Mean Corpuscular Hemoglobin 33.3 PG (26-34); Mean Corpuscular Volume 97.3 fL (80-100); Monocytes Absolute Auto 1200 /uL (0-900); Monocytes Percent Auto 9.4 % (3-14); Neutrophils Absolute Auto 8700 /uL (1500-7000); Platelet Count 204 X10^3/uL (150-400); Red Blood Cell Count 3.68 X10^6/uL (4.0-5.2); Red Cell Distribution Width 13.5 % (11.6-14.8); White Blood Cell Count 12.4 X10^3/uL (4.5-11.0)
[2021-07-17 04:59] LABS: COVID19 -Nasal RAPID Negative (Negative)
[2021-07-17] MEDS: OXYTOCIN 10 UNIT/ML VIAL IM (06:25)
--- NOTE | 2021-07-17 06:49 | P.HPOB_ITS ---
OB HPI Date/Time Date of admission: 07/17/21 Date Patient Seen: 07/17/21 Time Patient Seen: 05:30 History of Present Condition Chief complaint: labor Narrative: Alexus Kimball is a 31 year old at 41w0d with GEORGE of 07/10/21 per first trimester ultrasound. She presents with active labor x 5 hours. Her course has been uncomplicated. She is post-dates and DARINEL at 40w1d was 8.1 cm. NSTs in the last week have been reactive and reassuring. Bag of water is intact. LABS/IMAGING: ABO A positive, antibody negative on 12/09/20. Rubella immune. Hepatitis-B surface antigen negative. HIV, HSV 1 and 2 negative. Treponemal antibody negative. Varicella titer positive. Pap smear plus HPV DNA negative on 12/09/20. Urine culture negative on 12/09/20. Hemoglobin/hematocrit 13.2/38.4 on 12/09/20. Repeat hemoglobin/hematocrit 11.8/35.1 on 05/25/21. TSH within normal limits. 1 hour Glucola negative on 04/13/21. GBS negative on 06/22/21. NIPT negative, 12/09/20, male. Dating US: 11/18/20, 6w4d, GEORGE 07/10/21 Anatomy Scan: 02/28/22, 22w1d, normal DARINEL: 07/11/21, 40w1d, DARINEL 8.1 cm OBSTETRIC HISTORY: 01/04/15, , viable female, post-dates, no complications 10/03/16, , viable female, post-dates, no complications GYNECOLOGICAL HISTORY: None PAST MEDICAL HISTORY: Dermoid cyst Diverticulosis Right breast mass Depression ADD History of uterine prolapse Raynaud syndrome HSV 1 Migraine PAST SURGICAL HISTORY: Laparoscopic ovarian cystectomy Tonsillectomy and adenoidectomy FAMILY HISTORY: No known congenital defects SOCIAL HISTORY: to Marc. Works in [employer]. Marc works in [employer]. Two little girls at home. cat just had kittens two days ago. [facility] Medical History Depression Surgical History History of third molar tooth extraction Status post tonsillectomy and adenoidectomy Social History Smoking Status: Never smoker Meds Home Medications and Allergies Home Medications Medication Instructions Recorded Confirmed Type 1 ea PO #0 03/23/16 History ibuprofen 600 mg tablet 600 mg PO TIDP PRN 07/17/21 07/17/21 History Allergies Allergy/AdvReac Type Severity Reaction Status Date / Time cefaclor [From Ceclor] Allergy Unknown Unverified 06/02/18 08:50 Penicillins [PENICILLINS] Allergy Unknown Unverified 06/02/18 08:50 Review of Systems Review of Systems Narrative: All remaining ROS were reviewed and negative except as addressed. OB Exam Narrative Exam Narrative: General: NAD Skin: Color unremarkable, no rash nor lesions HEENT: Neck supple with midline trachea Lungs: CTAB Heart: Normal rate, and regular rhythm, S1, S2 normal, no murmur, click, rub or gallop Abdomen: Gravid, soft, non-tender Extremities: No clubbing, no edema, no cyanosis Pelvis: Normal female external genitalia Presentation: vertex Cervix: 10/100/-1 Monitoring: Variability: Moderate Baseline: 150s Accelerations: Present Decelerations: Absent Contractions: Every 3 minutes Strength: Moderate Objective Labs Result Diagrams: 07/17/21 03:45 Labs: Laboratory Results - last 24 hr 07/17/21 07/17/21 07/17/21 03:45 03:45 03:45 WBC 12.4 H RBC 3.68 L Hgb 12.3 Hct 35.8 L MCV 97.3 MCH 33.3 MCHC 34.3 RDW 13.5 Plt Count 204 Neut % (Auto) 70.0 Lymph % (Auto) 19.2 L Dougherty % (Auto) 9.4 Eos % (Auto) 0.8 L Baso % (Auto) 0.6 Neut # (Auto) 8700 H Lymph # (Auto) 2400 Dougherty # (Auto) 1200 H Eos # (Auto) 100 Baso # (Auto) 100 SARS-CoV-2 (PCR) Negative Blood Type A Positive Antibody Screen Negative Assessment and Plan Assessment and Plan Assessment and Plan narrative: 1. IUP at 41w0d 2. 3. Active Labor 4. Post-dates Plan: Admit to Labor and delivery with routine orders. Anticipate vaginal delivery. Questions answered, appropriate consents will be signed.
--- NOTE | 2021-07-17 06:49 | PM.OBPRVD ---
Labor & Delivery Delivery date: 07/17/21 Narrative: On 07/17/21, this 31 year old , GBS negative female under epidural anesthesia delivered a viable male with unknown weight and scores of 9/9. AROM at 05:44, clear fluid. Delivery was via normal spontaneous vaginal delivery at 06:15. Nuchal cord x 1 was reduced. Cord clamped and cut and infant handed to mother. Cord blood sent for analysis. Intact placenta with three-vessel cord was delivered spontaneously at 06:29. 10 mg of IV Pitocin administered. Uterus, cervix, vagina, and rectum explored and found to be intact. 2nd degree perineal laceration repaired with 3-0 Vicryl in the usual fashion. Estimated blood loss 300 cc. Patient remained in the delivery room in stable condition. Infant remained in the delivery room stable condition.
[2021-07-17 06:51] VITALS: BP 118/70
[2021-07-17] MEDS: IBUPROFEN 600 MG TABLET PO ×3 (08:38→21:24)
[2021-07-17 12:53] VITALS: TEMP 36.9
[2021-07-17] MEDS: ACETAMINOPHEN 325 MG TABLET 650 MG PO ×2 (12:53→18:53)
[2021-07-18] MEDS: ACETAMINOPHEN 325 MG TABLET 650 MG PO ×2 (00:58→07:54)
[2021-07-18] MEDS: HYDROCODONE/ACET 5/325 TABLET 1 TAB PO (01:08)
--- NOTE | 2021-07-18 04:36 | PM.OBDS.1 ---
Discharge Providers Provider Date of admission: 07/17/21 02:44 Discharge Date: 07/18/21 Primary care physician: Milagros Franklin MD Consults: 07/18/21 06:50 Consult to [employer] Routine Comment: Discharge provider: Anjana Trammell MD Summary Hospital Course Date Patient Seen: 07/18/21 Diagnoses: 1. 2. Status post at 41w0d 3. Post-dates Hospital Course: Unremarkable. Mother is well. Tolerating full diet with no nausea vomiting. Ambulating well. Lochia less than menses. On day of discharge, she is afebrile with stable vital signs throughout. Time spent on Discharge and Coordination of post-hospital care: 35 minutes Peripartum Data Infant Delivery Method: Natural Vaginal Laceration Description: Perineal - 2nd Degree Episiotomy description: None Procedures: 1. Epidural, 07/17/21, no complications 2. , 07/17/21, Dr. Trammell, no complications Status at Discharge Cognitive/behavioral status at discharge: at baseline, oriented Functional status at discharge: independent ambulation Overall status at discharge: patient is progressing back to baseline Time Spent with Patient Time attestation: Total time spent providing and/or coordinating discharge services: Objective Labs Result Diagrams: 07/18/21 05:00 Labs: Laboratory Results - last 24 hr 07/17/21 07/17/21 07/17/21 03:45 03:45 03:45 WBC 12.4 H RBC 3.68 L Hgb 12.3 Hct 35.8 L MCV 97.3 MCH 33.3 MCHC 34.3 RDW 13.5 Plt Count 204 Neut % (Auto) 70.0 Lymph % (Auto) 19.2 L Fajardo % (Auto) 9.4 Eos % (Auto) 0.8 L Baso % (Auto) 0.6 Neut # (Auto) 8700 H Lymph # (Auto) 2400 [place] # (Auto) 1200 H Eos # (Auto) 100 Baso # (Auto) 100 SARS-CoV-2 (PCR) Negative Blood Type A Positive Antibody Screen Negative Exam Narrative Exam Narrative: GENERAL: Alert and oriented, appearing stated age and in no acute distress. HEENT: Head normocephalic/atraumatic. Extraocular movements intact. LUNGS: Clear to ausculation bilaterally, no wheezes, rhonchi or rales. CV: Normal S1 and S2 with regular rate and rhythm, no audible murmurs, rubs or gallops. ABDOMEN: Soft, non-tender, non-distended, FF at U-3. No organomegaly. Positive bowel sounds. EXTREMITIES: No clubbing, cyanosis, or edema. NEURO: Cranial nerves II through XII grossly intact, no focal deficits. PSYCH: Alert and oriented x 3. SKIN: No concerning lesions. Discharge Plan Discharge Plan Patient Disposition: Home Provider Discharge Comment: 1. Routine care 2. No driving for 2 weeks. 3. Call or return for uncontrolled pain, fever, intractable nausea or vomiting, trouble with urination, heavy vaginal bleeding greater than 1 pad per hour, suicidal/homicidal thoughts, signs or symptoms of infection, or any other concerns. Discharge orders & Medications Prescriptions: New ibuprofen 600 mg Tablet 600 mg PO Q6HR PRN (Reason: Pain, Mild (1-3)) Qty: 45 1RF Prenatabs Rx 29 mg iron- 1 mg Tablet 1 tab PO DAILY Qty: 90 3RF docusate sodium 100 mg capsule 100 mg PO BID PRN (Reason: constipation) Qty: 20 1RF Continued 1 ea PO Qty: 0 0RF ibuprofen 600 MG tablet 600 mg PO TIDP PRN (Reason: Headache) 0RF Follow up/Referrals: Anjana Trammell MD [Physician] - Milagros Franklin MD [Primary Care Provider] - Diet/Activity/Treatments Diet: Diet as Tolerated Visit Report/Discharge Packet Instructions: DI for Labor and Delivery, Vaginal Discharge Data Primary Care Provider: Milagros Franklin
[2021-07-18 05:12] LABS: Hematocrit 32.3 % (36-46); Hemoglobin 11.2 g/dL (12.0-16.0)
[2021-07-18] MEDS: IBUPROFEN 600 MG TABLET PO (07:53)
[2021-07-18 09:27] VITALS: BP 129/79; PULSE 84; RESP 20; TEMP 36.2
== END 2021-07-18 10:11 | disposition home or self-care (01) | DRG 806 ==
PROVIDERS: Admitting Provider Student in an Organized Health Care Education/Training Program; PCP Family Medicine; Referring Provider Student in an Organized Health Care Education/Training Program; Visit Provider Student in an Organized Health Care Education/Training Program
DX: O48.0 Post-term pregnancy (principal); O98.52 Other viral diseases complicating childbirth; Z37.0 Single live birth; B00.9 Herpesviral infection, unspecified; Z3A.40 40 weeks gestation of pregnancy; O70.1 Second degree perineal laceration during delivery; O69.81X0 Labor and delivery complicated by cord around neck, without compression, not applicable or unspecified; Z20.822 Contact with and (suspected) exposure to COVID-19
CPT/HCPCS: 01967; 36415; 59050; 85014; 85018; 85025; 86850; 86900; 86901; 87635; C9803; G0379; J2590

== ENCOUNTER → 2022-10-24 17:12 | Outpatient (CLI) | payer OTHER, SELFPAY ==
[2022-10-24 17:30] LABS: Add Manual Diff / Slide Review NO; Basophils Absolute Auto 0 /uL (0-100); Basophils Percent Auto 0.5 % (0-2); Eosinophils Absolute Auto 100 /uL (0-450); Eosinophils Percent Auto 0.8 % (2-4); Hematocrit 44.5 % (36-46); Hemoglobin 15.2 g/dL (12.0-16.0); Lymphocytes Absolute Auto 2200 /uL (1100-4500); Lymphocytes Percent Auto 23.1 % (25-40); Mean Corpuscular HGB Conc 34.1 % (30-36); Mean Corpuscular Hemoglobin 32.6 PG (26-34); Mean Corpuscular Volume 95.4 fL (80-100); Monocytes Absolute Auto 700 /uL (0-900); Monocytes Percent Auto 7.2 % (3-14); Neutrophils Absolute Auto 6400 /uL (1500-7000); Neutrophils Percent Auto 68.4 % (50-75); Platelet Count 324 X10^3/uL (150-400); Red Blood Cell Count 4.66 X10^6/uL (4.0-5.2); Red Cell Distribution Width 12.6 % (11.6-14.8); White Blood Cell Count 9.4 X10^3/uL (4.5-11.0)
[2022-10-24 17:48] LABS: Alanine Aminotransferase 19 IU/L (<35); Albumin 4.8 g/dL (3.5-5.0); Albumin Globulin Ratio 1.4 (1.0-2.8); Alkaline Phosphatase 83 U/L (38-126); Aspartate Aminotransferase 23 IU/L (14-36); BUN Creatinine Ratio 23.4 (6-22); Bilirubin Total 0.7 mg/dL (0.2-1.3); Blood Urea Nitrogen 18 mg/dL (7-17); C-Reactive Protein Quant < 0.5 mg/dL (<1.0); Calcium 9.4 mg/dL (8.4-10.2); Carbon Dioxide 25 mmol/L (22-32); Chloride 101 mmol/L (98-107); Estimated Glomerular Filt Rate > 60 mL/min (>60); Globulin 3.5 g/dL (1.7-4.1); Glucose 96 mg/dL (70-100); HEMOLYSIS < 15 (0-50); Potassium 4.2 mmol/L (3.4-5.1); Sodium 137 mmol/L (137-145); Total Protein 8.3 g/dL (6.3-8.2)
[2022-10-24 18:02] LABS: Erythrocyte Sedimentation Rate 2 MM/HR (0-20)
[2022-10-24 18:15] LABS: Thyroid Stimulating Hormone 2.89 uIU/mL (0.47-4.68)
== END ==
PROVIDERS: PCP Family Medicine; Referring Provider Family Medicine; Visit Provider Family Medicine
DX: R42 Dizziness and giddiness (principal)
CPT/HCPCS: 36415; 80053; 84443; 85025; 85651; 86140

== ENCOUNTER → 2022-10-29 15:04 | Outpatient (CLI) | payer OTHER, SELFPAY | PROVIDERS: PCP Family Medicine; Referring Provider Family Medicine; Visit Provider Family Medicine | DX: R00.2 Palpitations (principal) | CPT/HCPCS: 93246 ==